=== PATIENT | female | born 1950 | race Caucasian/White ===

== ENCOUNTER 2016-06-04 19:18 | Inpatient (IN) | payer MEDICARE, MEDICAID ==
[2016-06-04] MEDS: ASPIRIN/DIPYRIDAMOLE 25-200 MG 1 CAP.SR CPMP.12HR PO SCH ×2 (01:06→22:00)
[2016-06-04] MEDS ORDERED: NORMAL SALINE 1000 ML 1,000 ML IV ONE ×3 (19:27→22:01)
--- NOTE | 2016-06-04 20:04 | ER Document Report ---
ED General - General Chief Complaint: Altered Mental Status Stated Complaint: ALTERED MENTAL STATUS Cannot obtain history due to: Unstable vital signs, Altered mental status Notes: Patient is a 65-year-old female with past history of hypertension, hyperlipidemia, CHF, peripheral vascular disease who presents by EMS after family found her minimally responsive in her bed. Had a breakdown her door to get inside. She was last seen 3 days ago. She was noted to not be moving the left side of her body. Patient does not have a history of similar symptoms in the past. Family noted that she seemed very confused. History is otherwise limited as patient is unable to provide meaningful history. She is critically ill at time of arrival. TRAVEL OUTSIDE OF THE [place] IN LAST 30 DAYS: No - Related Data Allergies/Adverse Reactions: Penicillins Allergy (Verified 06/05/16 01:22) Past Medical History - General Information source: Patient, Relative - Social History Smoking Status: Never Smoker Frequency of alcohol use: None Drug Abuse: None Lives with: Alone Family History: Reviewed & Not Pertinent - Past Medical History Cardiac Medical History: Reports: Hx Hypercholesterolemia, Hx Hypertension Neurological Medical History: Denies: Hx Seizures Endocrine Medical History: Reports: Hx Diabetes Mellitus Type 2 Renal/ Medical History: Reports: Hx Kidney Stones, Hx Ovarian Cysts - when 14yr old Musculoskeltal Medical History: Reports Hx Arthritis - hips/knees/fingers Past Surgical History: Reports: Hx Appendectomy, Hx Hysterectomy, Hx Tubal Ligation. Denies: Hx Pacemaker - Immunizations Hx Diphtheria, Pertussis, Tetanus Vaccination: No Hx Pneumococcal Vaccination: 05/24/08 Review of Systems - Review of Systems -: Yes ROS unobtainable due to patient's medical condition Physical Exam - Vital signs Vitals: Temp Pulse Resp BP Pulse Ox 98.5 F 122 H 18 149/91 H 96 06/04/16 19:26 06/04/16 19:26 06/04/16 19:26 06/04/16 19:26 06/04/16 19:26 Interpretation: Tachycardic Notes: PHYSICAL EXAMINATION: GENERAL: Critically ill in appearance, frail, confused HEAD: Atraumatic, normocephalic. EYES: Pupils equal round and reactive to light, patient will not cross midline to the left, sclera anicteric, conjunctiva are normal. ENT: nares patent, oropharynx clear without exudates. Dry mucous membranes. NECK: Normal range of motion, supple without lymphadenopathy LUNGS: Breath sounds clear to auscultation bilaterally and equal. No wheezes rales or rhonchi. HEART: Regular tachycardia without murmurs ABDOMEN: Soft, nontender, normoactive bowel sounds. No guarding, no rebound. No masses appreciated. EXTREMITIES: Normal range of motion, no pitting or edema. No cyanosis. NEUROLOGICAL: Complete left-sided neglect. Patient's gaze will not cross midline to the left. She does have flexion to noxious stimuli in both the left upper and lower extremity. 5 out of 5 strength both distally and proximally in the right upper and lower extremity. Face symmetric. Patient has clear speech that her thought content is often inappropriate or unclear. Unable to understand ataxia testing requests. PSYCH: Alert and oriented to person, place, year but confused to the situation and also has inappropriate thought content SKIN: Warm, Dry, normal turgor, no rashes or lesions noted. Course - Re-evaluation Re-evalutation: 06/04/16 20:02 A generalized critically ill, tachycardic, altered, complete left-sided neglect. Is not crossed the midline to the left. I suspect based on history that she had a stroke at some point in the last 2 days has been unable to get out of her bed secondary to that CVA. Her initial vitals in clinical appearance is concerning for possible associated infection at this point secondary to either aspiration or an occult urinary tract infection. She does have mild hypoxemia without oxygen dependence. She is extremely dehydrated on exam. Will proceed with broad laboratories, 2 L of IV fluid, CT the head, chest x-ray, fully catheter placement, and frequent reassessment. Patient is critically of this time will require frequent reassessments. 06/04/16 21:[address] scan does show a large right-sided stroke in the MCA distribution. Patient remains tachycardic without hypotension. Chest x-ray without evidence of an aspiration pneumonitis or pneumonia. White count is very elevated at 31. I'm awaiting the results of CMP. Troponin in the indeterminate range. Lactate not significantly elevated. 06/04/16 21:21 Labs demonstrate mild acute kidney injury but otherwise grossly unremarkable. Awaiting urinalysis. She will require admission. Fluids continue to infuse this time. Cefepime has been ordered given tachycardia, altered mental status, prolonged period in the bed, and prominent leukocytosis. 06/04/16 23:21 Urinalysis likewise not infected. I suspect leukocytosis is secondary to a stress response in the setting of a large CVA. Patient's tachycardia is improving at this time after administration of fluids and is currently in the 110s. I discussed this case with Dr. Porras will admit the patient. The family has been updated extensively at the bedside at this time. - Vital Signs Vital signs: Temp Pulse Resp BP Pulse Ox 98.5 F 122 H 19 153/97 H 93 06/04/16 19:26 06/04/16 19:26 06/05/16 03:00 06/04/16 20:31 06/05/16 03:00 - Laboratory Result Diagrams: 06/04/16 23:33 06/05/16 00:07 Laboratory results interpreted by me: 06/04/16 06/04/16 06/04/16 20:15 20:15 20:15 WBC 31.3 H* RBC 5.47 H Hgb 16.5 H Hct 51.4 H Seg Neuts % (Manual) 82 H Lymphocytes % (Manual) 8 L Abs Neuts (Manual) 25.7 H Abs Monocytes (Manual) 3.1 H ABG Total CO2 VBG pH Sodium 148.4 H Anion Gap 22 H BUN 69 H Creatinine 1.68 H Est GFR ( Amer) 37 L Est GFR (Non-Af Amer) 30 L Glucose 373 H Lactic Acid 2.4 H Calcium 10.8 H Creatine Kinase 381 H Total Protein 8.7 H Urine Protein Urine Glucose (UA) Urine Ketones Urine Blood 06/04/16 06/04/16 06/04/16 20:15 21:30 23:25 WBC RBC Hgb Hct Seg Neuts % (Manual) Lymphocytes % (Manual) Abs Neuts (Manual) Abs Monocytes (Manual) ABG Total CO2 25.5 H VBG pH 7.44 H Sodium Anion Gap BUN Creatinine Est GFR ( Amer) Est GFR (Non-Af Amer) Glucose Lactic Acid Calcium Creatine Kinase Total Protein Urine Protein 100 H Urine Glucose (UA) >=500 H Urine Ketones TRACE H Urine Blood SMALL H - Diagnostic Test Radiology reviewed: Image reviewed, Reports reviewed Radiology results interpreted by me: 06/04/16 21:11 CT head: Ischemic stroke in the right MCA distribution - EKG Interpretation by Me Additional EKG results interpreted by me: 06/05/16 03:22 Sinus tachycardia. Rate 123. No ST elevations or depressions. QTC 487. Critical Care Note - Critical Care Note Total time excluding time spent on procedures (mins): 40 Comments: Critical care time spent obtaining history from patient or surrogate, discussions with consultants, development of treatment plan with patient or surrogate, evaluation of patient's response to treatment, examination of patient , ordering and performing treatments and interventions, ordering and review of laboratory studies, re-evaluation of patient's condition, ordering and review of radiographic studies and review of old charts Discharge - Discharge Clinical Impression: Tachycardia, Dehydration, Acute kidney injury CVA (cerebral vascular accident) Qualifiers: CVA mechanism: unspecified Qualified Code(s): I63.9 - Cerebral infarction, unspecified Altered mental status Qualifiers: Altered mental status type: unspecified Qualified Code(s): R41.82 - Altered mental status, unspecified Disposition: ADMITTED INPATIENT Admitting Provider: [facility] Admitted: [facility]
[2016-06-04 20:29] LABS: VENOUS BLOOD BASE EXCESS 2.3 mmol/L; VENOUS BLOOD HCO3 26.5 mmol/L (20-32); VENOUS BLOOD PCO2 39.5 mmHg (35-63); VENOUS BLOOD PH 7.44 (7.30-7.42)
[2016-06-04 20:31] LABS: HEMATOCRIT 51.4 % (36.0-47.0); HEMOGLOBIN 16.5 g/dL (12.0-15.5); HGB HCT DIFFERENCE -1.9; MEAN CORPUSCULAR HEMOGLOBIN 30.2 pg (27.0-33.4); MEAN CORPUSCULAR HGB CONC 32.1 g/dL (32.0-36.0); MEAN CORPUSCULAR VOLUME 94 fl (80-97); RED BLOOD COUNT 5.47 10^6/uL (3.72-5.28); RED CELL DISTRIBUTION WIDTH 13.1 % (11.5-14.0)
[2016-06-04 20:46] LABS: ALANINE AMINOTRANSFERASE 21 U/L (9-52); ALBUMIN 4.7 g/dL (3.5-5.0); ALKALINE PHOSPHATASE 99 U/L (38-126); ASPARTATE AMINO TRANSFERASE 29 U/L (14-36); BILIRUBIN,TOTAL 1.2 mg/dL (0.2-1.3); BLOOD UREA NITROGEN 69 mg/dL (7-20); CALCIUM 10.8 mg/dL (8.4-10.2); CHLORIDE 102 mmol/L (98-107); CREATINE KINASE 381 U/L (30-135); CREATININE RESULT 1.68 mg/dL (0.52-1.25); GLUCOSE 373 mg/dL (75-110); POTASSIUM 4.8 mmol/L (3.6-5.0); TOTAL PROTEIN 8.7 g/dL (6.3-8.2)
[2016-06-04 20:51] LABS: BASOPHILS % (MANUAL) 0 % (0-2); EOSINOPHILS % (MANUAL) 0 % (0-6); LYMPHOCYTES % (MANUAL) 8 % (13-45); TOTAL CELLS COUNTED 100
[2016-06-04 20:52] LABS: TOXIC GRANULATION SLIGHT; WHITE BLOOD COUNT 31.3 10^3/uL (4.0-10.5)
[2016-06-04] MEDS ORDERED: HALOPERIDOL LACTATE INJ 5 MG/1 ML VIAL ONE (20:59)
[2016-06-04 21:01] LABS: CREATINE KINASE MB 3.04 ng/mL (<4.55)
[2016-06-04] MEDS ORDERED: CEFEPIME 2 GM/D5W RTU 50 ML IV ONE (21:02)
[2016-06-04 21:06] LABS: TROPONIN I 0.052 ng/mL
[2016-06-04 21:08] LABS: CARBON DIOXIDE 24 mmol/L (22-30); SODIUM 148.4 mmol/L (137-145)
[2016-06-04 21:14] LABS: ANION GAP 22 (5-19)
[2016-06-04] MEDS ORDERED: ASPIRIN 300 MG SUPP, RECTAL PR ONE (21:32)
[2016-06-04 21:55] LABS: APPEARANCE,URINE SLIGHTLY-CLOUDY; BILIRUBIN,URINE NEGATIVE (NEGATIVE); GLUCOSE, URINE >=500 mg/dL (NEGATIVE); KETONES,URINE TRACE mg/dL (NEGATIVE); LEUKOCYTE ESTERASE,URINE NEGATIVE (NEGATIVE); NITRITE,URINE NEGATIVE (NEGATIVE); PROTEIN,URINE 100 mg/dL (NEGATIVE); URINE SPECIFIC GRAVITY 1.028; UROBILINOGEN,URINE NEGATIVE mg/dL (<2.0)
[2016-06-04] MEDS ORDERED: CEFEPIME HCL 2 GM in DEXTROSE 5%-WATER 50 ML IV ONE (22:00)
[2016-06-04] MEDS ORDERED: DEXTROSE 40% GEL 15 GM TUBE NG PRN ×2 (22:57)
[2016-06-04] MEDS ORDERED: GLUCAGON,HUMAN RECOMB 1 MG INJ IM PRN (22:57)
[2016-06-04] MEDS ORDERED: DEXTROSE 50%-WATER 25 GM/50 ML DISP.SYRIN IV PRN ×2 (22:57)
[2016-06-04] MEDS ORDERED: PHARMACY COMMUNICATION ORDER MC NR (23:00)
[2016-06-04 23:43] LABS: ARTERIAL BLOOD BASE EXCESS -0.7 mmol/L; ARTERIAL BLOOD O2 SATURATION 95.9 % (94-98)
[2016-06-05] MEDS ORDERED: AMPICILLIN SODIUM/SULBACTAM NA 3 GM in NORMAL SALINE 100 ML IV SCH ×2
[2016-06-05] MEDS ORDERED: ASPIRIN/DIPYRIDAMOLE 25-200 MG 1 CAP.SR CPMP.12HR PO ONE (00:05)
[2016-06-05 00:16] LABS: HEMATOCRIT 43.8 % (36.0-47.0); HGB HCT DIFFERENCE -2.4; MEAN CORPUSCULAR HEMOGLOBIN 30.2 pg (27.0-33.4); MEAN CORPUSCULAR HGB CONC 31.6 g/dL (32.0-36.0); MEAN CORPUSCULAR VOLUME 96 fl (80-97); RED BLOOD COUNT 4.58 10^6/uL (3.72-5.28); RED CELL DISTRIBUTION WIDTH 13.3 % (11.5-14.0)
[2016-06-05 00:21] LABS: PROTHROMBIN TIME 12.6 SEC (11.4-15.4)
[2016-06-05 00:22] LABS: PARTIAL THROMBOPLASTIN TIME 22.5 SEC (23.5-35.8)
[2016-06-05 00:30] LABS: CREATININE RESULT 1.31 mg/dL (0.52-1.25)
[2016-06-05 00:33] LABS: WHITE BLOOD COUNT 32.1 10^3/uL (4.0-10.5)
[2016-06-05 00:35] LABS: HEMOGLOBIN 13.8 g/dL (12.0-15.5)
[2016-06-05 02:54] LABS: CREATINE KINASE MB 2.4 ng/mL (<4.55); TROPONIN I 0.053 ng/mL
[2016-06-05] MEDS: NORMAL SALINE 1000 ML 1,000 ML IV PRN (04:22)
[2016-06-05] MEDS ORDERED: HALOPERIDOL LACTATE INJ 5 MG/1 ML VIAL ONE (05:07)
[2016-06-05] MEDS: INSULIN LISPRO 100 UNIT/ML 3 ML VIAL SUBCUT PRN (05:17)
[2016-06-05] MEDS: ENOXAPARIN SODIUM INJ 40 MG/0.4 ML DISP.SYRIN SUBCUT SCH (07:55)
[2016-06-05] MEDS ORDERED: LEVOFLOXACIN 750 MG/D5W RTU 750 MG/150 ML RTUPB IV ONE (11:00)
[2016-06-05 13:27] LABS: CREATINE KINASE MB 4.46 ng/mL (<4.55); TROPONIN I 0.037 ng/mL
[2016-06-05] MEDS ORDERED: MORPHINE SULFATE 10 MG/ML INJ ONE (14:13)
[2016-06-05 14:14] LABS: PATH REVIEW PATHOLOGIST REVIEWED
--- NOTE | 2016-06-05 15:07 | EKG REPORT ---
SEVERITY:- ABNORMAL ECG - SINUS TACHYCARDIA PROBABLE LVH WITH SECONDARY REPOL ABNRM BORDERLINE INFERIOR Q WAVES ST DEPRESSION, CONSIDER ISCHEMIA, ANT-LAT LDS BORDERLINE PROLONGED QT INTERVAL : Confirmed by: Earline Perdomo 05-Jun-2016 15:06:55
--- NOTE | 2016-06-05 15:07 | EKG REPORT ---
SEVERITY:- ABNORMAL ECG - SINUS TACHYCARDIA MULTIFORM VENTRICULAR PREMATURE COMPLEXES PROBABLE LVH WITH SECONDARY REPOL ABNRM : Confirmed by: Earline Perdomo 05-Jun-2016 15:06:43
[2016-06-05] MEDS: MORPHINE SULFATE 10 MG/ML INJ IV PRN ×2 (15:35→23:15)
[2016-06-05 18:41] LABS: CREATINE KINASE MB 6.5 ng/mL (<4.55); TROPONIN I 0.047 ng/mL
--- NOTE | 2016-06-05 19:37 | PDOC H&P ---
History of Present Illness Admission Date/PCP: 06/04/16 23:40 DAYO CHANDLER, History of Present Illness: MIGUEL ANGEL LAZCANO is a 65 year old female with history of diabetes mellitus type II , hypertension, chronic kidney disease stage III, she was transferred to the emergency room last night, the history was that patient's family was unable to get in contact with the patient for 3 days, patient's family decided to visit Patient's residence, they have to breakdown the the door to get inside the residence, patient was found on the floor confused and she was not moving the left side of her body, in the emergency room she was seen, CT head was done without contrast, it showed patchy parenchyma hypodensities in the right temporal lobe consistent with middle cerebral artery distribution infarction. Subsequent MRI brain was done and it showed a large acute right middle cerebral artery distribution infarction involving the right basal ganglia, external capsule , insular cortex extending into the right posterior temporal Cortex. There is hematologic signal along the surface of the right perisylvian cortex with mild mass effect. MRA of the brain showed I grade stenosis at the trifurcation of the right middle cerebral artery. When I saw patient, she is unresponsive. I saw family by the bedside, the son and the daughter, family wants patient to be DO NOT RESUSCITATE Past Medical History Cardiac Medical History: Reports: Hyperlipidema, Hypertension Endocrine Medical History: Reports: Diabetes Mellitus Type 2 Renal/ Medical History: Reports: Chronic Kidney Disease - Chronic kidney disease stage 3 Musculoskeltal Medical History: Reports: Arthritis - hips/knees/fingers Psychiatric Medical History: Reports: Depression Past Surgical History Past Surgical History: Reports: Appendectomy, Hysterectomy, Tubal Ligation Social History Lives with: Alone Smoking Status: Never Smoker Cigarettes Packs Per Day: 2 Frequency of Alcohol Use: None Hx Recreational Drug Use: No Hx Prescription Drug Abuse: No - Advance Directive Resuscitation Status: Full Code Family History Family History: Reviewed & Not Pertinent Parental Family History Reviewed: Yes Children Family History Reviewed: Yes Sibling(s) Family History Reviewed.: Yes Medication/Allergy Home Medications: Acetaminophen [Tylenol 325 mg Tablet] 325 mg PO Q4HP PRN 06/05/16 Aspirin [Ecotrin 81 mg EC Tablet] 81 mg PO DAILY 06/05/16 Atorvastatin Calcium [Lipitor 20 mg Tablet] 20 mg PO DAILY 06/05/16 Canagliflozin [Invokana] 100 mg PO DAILY 06/05/16 Losartan/Hydrochlorothiazide [Hyzaar 50-12.5 Tablet] 1 each PO DAILY 06/05/16 Tramadol HCl/Acetaminophen [Ultracet 37.5 mg/325 mg Tablet] 1 tab PO Q6 Allergies/Adverse Reactions: Penicillins Allergy (Mild, Verified 06/05/16 09:56) RASH Review of Systems ROS unobtainable: Due to mental status Physical Exam Vital Signs: Temp Pulse Resp BP Pulse Ox 97.6 F 108 H 18 161/78 H 97 06/05/16 15:34 06/05/16 16:00 06/05/16 16:00 06/05/16 16:00 06/05/16 16:00 Intake & Output 06/04/16 06/05/16 06/06/16 06:59 06:59 06:59 Intake Total 750 Output Total 600 Balance 150 Weight 59.3 kg General appearance: PRESENT: other - Patient is unresponsive Eye exam: PRESENT: PERRLA Respiratory exam: PRESENT: clear to auscultation maryanne Cardiovascular exam: PRESENT: +S1, +S2 GI/Abdominal exam: PRESENT: soft Neurological exam: PRESENT: other - Flaccid left-sided hemiplegia Results Laboratory Results: 06/05/16 00:07 06/05/16 00:07 Creatinine 1.31 H Est GFR ( Amer) 49 L Est GFR (Non-Af Amer) 40 L 06/05/16 06/05/16 06/05/16 02:21 02:21 12:12 Creatine Kinase 359 H 1034 H CK-MB (CK-2) 2.40 Troponin I 0.053 06/05/16 06/05/16 06/05/16 12:12 17:55 17:55 Creatine Kinase 1592 H CK-MB (CK-2) 4.46 6.50 H Troponin I 0.037 0.047 Impressions: Chest X-Ray 06/04/16 19:27 IMPRESSION: NO ACUTE RADIOGRAPHIC FINDING IN THE CHEST. Head CT 06/04/16 20:02 IMPRESSION: Patchy parenchymal hypodensities in the right temporal lobe consistent with a subacute MCA distribution infarct, new since the previous MRI. No intracranial hemorrhage or midline shift. Brain MRI with MRA 06/05/16 00:00 IMPRESSION: Large right MCA distribution infarct with hemorrhagic staining over the superficial cortical surface. Mild local mass effect with sulcal and sylvian fissure effacement and flattening of the right lateral ventricle. Abnormal distal right middle cerebral artery at the trifurcation, with a short segment of flow gap. More distally, there is flow identified in the right middle cerebral artery branches, although significantly attenuated in the posterior right middle cerebral artery branches Carotid Doppler Study 06/05/16 00:00 IMPRESSION: NO HEMODYNAMICALLY SIGNIFICANT STENOSIS. Head MRI 06/05/16 00:00 IMPRESSION: Large right MCA distribution infarct with hemorrhagic staining over the superficial cortical surface. Mild local mass effect with sulcal and sylvian fissure effacement and flattening of the right lateral ventricle. Abnormal distal right middle cerebral artery at the trifurcation, with a short segment of flow gap. More distally, there is flow identified in the right middle cerebral artery branches, although significantly attenuated in the posterior right middle cerebral artery branches Renal Ultrasound 06/05/16 00:00 IMPRESSION: No hydronephrosis. Assessment & Plan - Diagnosis (1) Right middle cerebral artery stroke Is this a current diagnosis for this admission?: YesPlan: Management per stroke protocol instituted, she has a massive stroke, patient will be monitored in intensive care unit, the MRI suggest mild hemorrhagic transformation, prognosis is guarded to poor in this patient (2) Flaccid hemiplegia affecting left nondominant side Is this a current diagnosis for this admission?: Yes (3) Diabetes mellitus, type II Qualifiers: Diabetes mellitus complication status: with neurologic complications Diabetes mellitus complication detail: with other neurological complication Diabetes mellitus prison insulin use: without prison use Qualified Code(s): E11.49 - Type 2 diabetes mellitus with other diabetic neurological complication Is this a current diagnosis for this admission?: Yes (4) Acute kidney injury superimposed on chronic kidney disease Is this a current diagnosis for this admission?: YesPlan: The kidney ultrasound was done there is no hydronephrosis to suggest post renal , acute kidney injury (5) Acute worsening of stage 3 chronic kidney disease Is this a current diagnosis for this admission?: Yes
--- NOTE | 2016-06-05 20:01 | XCELERA REPORT ---
[address] [address] Transthoracic Echocardiogram Report Name: MIGUEL ANGEL LAZCANO Age: 65 yrs Gender: Female : 1950 Patient Status: Inpatient Patient Location: \S\20\S\A Study Date: 06/05/2016 10:17 AM Height: 64 in Weight: 123 lb BSA: 1.6 m2 Procedure: A complete two-dimensional transthoracic echocardiogram was performed (2D, M-mode, spectral and color flow Doppler). The study was technically difficult with many images being suboptimal in quality. Reason For Study: cva Ordering Physician: DAYO CHANDLER Performed By: Chelle Thomas Interpretation Summary The left ventricular ejection fraction is normal. There is borderline concentric left ventricular hypertrophy. The left ventricle is grossly normal size. Doppler measurements suggest pseudonormalized left ventricular relaxation, which is associated with grade II/IV or mild to moderate diastolic dysfunction Wall motion cannot be accurately commented on, but no definite regional wall motion abnormalities noted. The right ventricular systolic function is normal. The left atrial size is normal. The right atrium is normal. There is no mitral valve stenosis. There is a trace amount of mitral regurgitation No aortic regurgitation is present. There is no aortic valve stenosis There is no tricuspid stenosis. No tricuspid regurgitation. The aortic root is not well visualized. The inferior vena cava was not well visualized There is no pericardial effusion. Consider MANINDER if clinically indicated. May consider mobile cardiac telemetry monitoring (MCT) for ruling out transient AFIB. MMode/2D Measurements \T\ Calculations RVDd: 2.5 cm LVIDd: 3.8 cm FS: 34.7 % Ao root diam: 3.5 cm IVSd: 0.95 cm LVIDs: 2.5 cm EDV(Teich): 62.0 ml LVPWd: 1.0 cm ESV(Teich): 22.0 ml Ao root area: 9.9 cm2 EF(Teich): 64.6 % LA dimension: 3.1 cm LVOT diam: 2.0 cm LVOT area: 3.1 cm2 Doppler Measurements \T\ Calculations MV E max scottie: MV P1/2t max scottie: Ao V2 max: LV V1 max P.7 cm/sec 63.2 cm/sec 127.3 cm/sec 4.5 mmHg MV A max scottie: MV P1/2t: 44.0 msec Ao max PG: LV V1 max: 110.6 cm/sec MVA(P1/2t): 5.0 cm2 6.5 mmHg 106.6 cm/sec MV E/A: 0.56 MV dec slope: REDDY(V,D): 2.6 cm2 420.5 cm/sec2 MV dec time: 0.17 sec PA V2 max: 108.6 cm/sec PA max P.7 mmHg Left Ventricle The left ventricle is grossly normal size. There is borderline concentric left ventricular hypertrophy. The left ventricular ejection fraction is normal. Doppler measurements suggest pseudonormalized left ventricular relaxation, which is associated with grade II/IV or mild to moderate diastolic dysfunction. Wall motion cannot be accurately commented on, but no definite regional wall motion abnormalities noted. Right Ventricle The right ventricle is grossly normal size. There is normal right ventricular wall thickness. The right ventricular systolic function is normal. Atria The right atrium is normal. The left atrial size is normal. Interarterial septum not well visualized and not well dopplered. Cannot comment on ASD/PFO presence. Mitral Valve The mitral valve is grossly normal. There is no mitral valve stenosis. There is a trace amount of mitral regurgitation. Aortic Valve The aortic valve is not well visualized secondary to technical limitations. There is no aortic valve stenosis. No aortic regurgitation is present. Tricuspid Valve The tricuspid valve is not well visualized, but is grossly normal. There is no tricuspid stenosis. No tricuspid regurgitation. Pulmonic Valve The pulmonic valve is not well visualized. Great Vessels The aortic root is not well visualized. The inferior vena cava was not well visualized. Effusions There is no pericardial effusion. Incidental Findings No definite cardiac source of CVA/TIA noted on this particular trans- thoracic study. Consider MANINDER if clinically indicated. May consider mobile cardiac telemetry monitoring (MCT) for ruling out transient AFIB. : DAYO CHANDLER > Earline Perdomo
[2016-06-06] MEDS: MORPHINE SULFATE 10 MG/ML INJ IV PRN ×4 (03:44→18:28)
[2016-06-06] MEDS: NORMAL SALINE 1000 ML 1,000 ML IV PRN ×2 (09:19→21:16)
[2016-06-06] MEDS: LEVOFLOXACIN 750 MG/D5W RTU 750 MG/150 ML RTUPB IV SCH (09:19)
[2016-06-06] MEDS: ASPIRIN/DIPYRIDAMOLE 25-200 MG 1 CAP.SR CPMP.12HR PO SCH ×2 (11:40→21:15)
[2016-06-06] MEDS: ENOXAPARIN SODIUM INJ 40 MG/0.4 ML DISP.SYRIN SUBCUT SCH (11:40)
[2016-06-06] MEDS: INSULIN LISPRO 100 UNIT/ML 3 ML VIAL SUBCUT PRN (11:50)
--- NOTE | 2016-06-06 18:07 | PDOC PROGRESS REPORT ---
Subjective Progress Note for:: 06/06/16 Subjective:: Daughters and son at bedside. Patient is lucid to person and names. Denied any chest pain or difficulty with breathing. Nursing staff reported intermittent inappropriate responses earlier today. Remain NPO for food. No reported fever or chills. Physical Exam Vital Signs: Temp Pulse Resp BP Pulse Ox 98.0 F 87 18 188/81 H 95 06/06/16 16:18 06/06/16 16:18 06/06/16 16:18 06/06/16 16:18 06/06/16 16:18 Intake & Output 06/05/16 06/06/16 06/07/16 06:59 06:59 06:59 Intake Total 1950 0 Output Total 1200 500 Balance 750 -500 Weight 60.9 kg General appearance: PRESENT: no acute distress, well-developed, well-nourished Head exam: PRESENT: atraumatic, normocephalic Eye exam: PRESENT: conjunctiva pink, EOMI, PERRLA. ABSENT: scleral icterus Ear exam: PRESENT: normal external ear exam Mouth exam: PRESENT: moist, tongue midline Teeth exam: ABSENT: dental caries, dental tenderness, edentulous, poor dentation , other Throat exam: ABSENT: post pharyngeal erythema, tonsillar erythema, tonsillar exudate, tonsillogmegaly, other Neck exam: PRESENT: full ROM. ABSENT: carotid bruit, JVD, lymphadenopathy, thyromegaly Respiratory exam: ABSENT: accessory muscle use, chest wall tenderness, clear to auscultation maryanne, crackles, decreased breath sounds, prolonged expiratory phas, rales, retraction, rhonchi, stridor, symmetrical, tachypnea, unlabored, wheezes , other Cardiovascular exam: PRESENT: RRR. ABSENT: diastolic murmur, rubs, systolic murmur Pulses: PRESENT: normal dorsalis pedis pul, +2 pedal pulses bilateral Vascular exam: PRESENT: normal capillary refill GI/Abdominal exam: PRESENT: normal bowel sounds, soft. ABSENT: distended, guarding, mass, organolmegaly, rebound, tenderness Extremities exam: PRESENT: full ROM Musculoskeletal exam: PRESENT: full ROM, normal inspection Neurological exam: PRESENT: alert, awake, oriented to person, other - there is dense left hemiplegia Psychiatric exam: PRESENT: appropriate affect, normal mood. ABSENT: homicidal ideation, suicidal ideation Skin exam: PRESENT: dry, intact, warm. ABSENT: cyanosis, rash Results Laboratory Results: 06/05/16 00:07 06/05/16 06/05/16 06/05/16 02:21 02:21 12:12 Creatine Kinase 359 H 1034 H CK-MB (CK-2) 2.40 Troponin I 0.053 06/05/16 06/05/16 06/05/16 12:12 17:55 17:55 Creatine Kinase 1592 H CK-MB (CK-2) 4.46 6.50 H Troponin I 0.037 0.047 Impressions: Chest X-Ray 06/04/16 19:27 IMPRESSION: NO ACUTE RADIOGRAPHIC FINDING IN THE CHEST. Head CT 06/04/16 20:02 IMPRESSION: Patchy parenchymal hypodensities in the right temporal lobe consistent with a subacute MCA distribution infarct, new since the previous MRI. No intracranial hemorrhage or midline shift. Brain MRI with MRA 06/05/16 00:00 IMPRESSION: Large right MCA distribution infarct with hemorrhagic staining over the superficial cortical surface. Mild local mass effect with sulcal and sylvian fissure effacement and flattening of the right lateral ventricle. Abnormal distal right middle cerebral artery at the trifurcation, with a short segment of flow gap. More distally, there is flow identified in the right middle cerebral artery branches, although significantly attenuated in the posterior right middle cerebral artery branches Carotid Doppler Study 06/05/16 00:00 IMPRESSION: NO HEMODYNAMICALLY SIGNIFICANT STENOSIS. Head MRI 06/05/16 00:00 IMPRESSION: Large right MCA distribution infarct with hemorrhagic staining over the superficial cortical surface. Mild local mass effect with sulcal and sylvian fissure effacement and flattening of the right lateral ventricle. Abnormal distal right middle cerebral artery at the trifurcation, with a short segment of flow gap. More distally, there is flow identified in the right middle cerebral artery branches, although significantly attenuated in the posterior right middle cerebral artery branches Renal Ultrasound 06/05/16 00:00 IMPRESSION: No hydronephrosis. Assessment & Plan - Diagnosis (1) Traumatic rhabdomyolysis Qualifiers: Encounter type: subsequent encounter Qualified Code(s): T79.6XXD - Traumatic ischemia of muscle, subsequent encounter Is this a current diagnosis for this admission?: YesPlan: Continue IV hydration therapy. Total CK is currently on upward trend. (2) HTN (hypertension) Qualifiers: Hypertension type: essential hypertension Qualified Code(s): I10 - Essential (primary) hypertension Is this a current diagnosis for this admission?: YesPlan: Restart on Losartan 50 mg po daily. Monitor renal indices. (3) HLD (hyperlipidemia) Qualifiers: Hyperlipidemia type: pure hypercholesterolemia Qualified Code(s): E78.00 - Pure hypercholesterolemia, unspecified; E78.0 - Pure hypercholesterolemia Is this a current diagnosis for this admission?: YesPlan: Obtain fasting Lipid panel in AM. Hold statin therapy in view of acute rhabdomyolysis (4) Acute worsening of stage 3 chronic kidney disease Is this a current diagnosis for this admission?: YesPlan: There is some degree of improvement in renal indices. We will repeat her CMP in am. (5) CVA (cerebral vascular accident) Qualifiers: CVA mechanism: unspecified Qualified Code(s): I63.9 - Cerebral infarction, unspecified Is this a current diagnosis for this admission?: YesPlan: Continue supportive care. She may need repeat CT scan evaluation in next 72 hours if clinical status continue to improve. (6) Diabetes mellitus, type II Qualifiers: Diabetes mellitus complication status: with neurologic complications Diabetes mellitus complication detail: with other neurological complication Diabetes mellitus senior care insulin use: without intermodal dispatcher use Qualified Code(s): E11.49 - Type 2 diabetes mellitus with other diabetic neurological complication Is this a current diagnosis for this admission?: Yes (7) Flaccid hemiplegia affecting left nondominant side Is this a current diagnosis for this admission?: YesPlan: Continue current supportive care. Request physical therapy, occupational therapy and speech pathologist input in rehabilitative care plan. - Time Time Spent with patient: 35 or more minutes Medications reviewed and adjusted accordingly: Yes Anticipated discharge: Acute Rehab Within: Other - Inpatient Certification Medical Necessity: Need For IV Fluids, Need for Neurological Checks, Need for IV Antibiotics, Risk of Complication if Not Cared For in Hospital Post Hospital Care: D/C Trommel Tender Documentation - Plan Summary Plan Summary: See covering attending physician orders. I had extensive discussion with family and patient at bedside during my visit regarding her guided prognosis. She will remain a DNR. More than 50% of my consultation time was spent in care plan counseling and answering raised questions.
[2016-06-07 06:36] LABS: MICROALBUMIN URINE 49.9 ug/mL (Not Estab.)
[2016-06-07] MEDS: NORMAL SALINE 1000 ML 1,000 ML IV PRN ×2 (07:19→18:12)
[2016-06-07] MEDS: ENOXAPARIN SODIUM INJ 40 MG/0.4 ML DISP.SYRIN SUBCUT SCH (09:33)
[2016-06-07] MEDS: LEVOFLOXACIN 750 MG/D5W RTU 750 MG/150 ML RTUPB IV SCH (09:34)
[2016-06-07] MEDS: ASPIRIN/DIPYRIDAMOLE 25-200 MG 1 CAP.SR CPMP.12HR PO SCH ×2 (09:35→23:17)
[2016-06-07] MEDS: MORPHINE SULFATE 10 MG/ML INJ IV PRN ×2 (10:22→16:09)
[2016-06-07] MEDS: INSULIN LISPRO 100 UNIT/ML 3 ML VIAL SUBCUT PRN (11:08)
--- NOTE | 2016-06-07 15:50 | PDOC PROGRESS REPORT ---
Subjective Progress Note for:: 06/07/16 Subjective:: Patient continue to demonstrate fairly satisfactory clarity in her responses with some episodes of disorientation to place as per nursing staff report. She denied any chest pain or difficulty with breathing. Remain N.P.O for food. No reported fever or chills. Family members are at bedside. Physical Exam Vital Signs: Temp Pulse Resp BP Pulse Ox 98.2 F 95 20 185/66 H 94 06/07/16 11:05 06/07/16 14:00 06/07/16 12:00 06/07/16 12:00 06/07/16 12:00 Intake & Output 06/06/16 06/07/16 06/08/16 06:59 06:59 06:59 Intake Total 1950 2649 0 Output Total 1200 1850 500 Balance 750 799 -500 Weight 60.9 kg 67.449 kg General appearance: PRESENT: no acute distress, well-developed, well-nourished Head exam: PRESENT: atraumatic, normocephalic Eye exam: PRESENT: conjunctiva pink, EOMI, scleral icterus Respiratory exam: ABSENT: accessory muscle use, chest wall tenderness, clear to auscultation maryanne, crackles, decreased breath sounds, prolonged expiratory phas, rales, retraction, rhonchi, stridor, symmetrical, tachypnea, unlabored, wheezes , other Cardiovascular exam: PRESENT: RRR. ABSENT: diastolic murmur, rubs, systolic murmur GI/Abdominal exam: PRESENT: normal bowel sounds, soft. ABSENT: distended, guarding, mass, organolmegaly, rebound, tenderness Neurological exam: PRESENT: alert, awake, other - there is dense left hemiplegia with right gaze preference Psychiatric exam: PRESENT: appropriate affect, normal mood. ABSENT: homicidal ideation, suicidal ideation Skin exam: PRESENT: dry, intact, warm. ABSENT: cyanosis, rash Results Laboratory Results: 06/05/16 00:07 06/05/16 06/05/16 06/05/16 02:21 02:21 12:12 Creatine Kinase 359 H 1034 H CK-MB (CK-2) 2.40 Troponin I 0.053 06/05/16 06/05/16 06/05/16 12:12 17:55 17:55 Creatine Kinase 1592 H CK-MB (CK-2) 4.46 6.50 H Troponin I 0.037 0.047 Impressions: Chest X-Ray 06/04/16 19:27 IMPRESSION: NO ACUTE RADIOGRAPHIC FINDING IN THE CHEST. Head CT 06/04/16 20:02 IMPRESSION: Patchy parenchymal hypodensities in the right temporal lobe consistent with a subacute MCA distribution infarct, new since the previous MRI. No intracranial hemorrhage or midline shift. Brain MRI with MRA 06/05/16 00:00 IMPRESSION: Large right MCA distribution infarct with hemorrhagic staining over the superficial cortical surface. Mild local mass effect with sulcal and sylvian fissure effacement and flattening of the right lateral ventricle. Abnormal distal right middle cerebral artery at the trifurcation, with a short segment of flow gap. More distally, there is flow identified in the right middle cerebral artery branches, although significantly attenuated in the posterior right middle cerebral artery branches Carotid Doppler Study 06/05/16 00:00 IMPRESSION: NO HEMODYNAMICALLY SIGNIFICANT STENOSIS. Head MRI 06/05/16 00:00 IMPRESSION: Large right MCA distribution infarct with hemorrhagic staining over the superficial cortical surface. Mild local mass effect with sulcal and sylvian fissure effacement and flattening of the right lateral ventricle. Abnormal distal right middle cerebral artery at the trifurcation, with a short segment of flow gap. More distally, there is flow identified in the right middle cerebral artery branches, although significantly attenuated in the posterior right middle cerebral artery branches Renal Ultrasound 06/05/16 00:00 IMPRESSION: No hydronephrosis. Assessment & Plan - Diagnosis (1) Traumatic rhabdomyolysis Qualifiers: Encounter type: subsequent encounter Qualified Code(s): T79.6XXD - Traumatic ischemia of muscle, subsequent encounter Is this a current diagnosis for this admission?: YesPlan: Continue IV normal saline infusion. Obtain serum total CK in am. (2) HTN (hypertension) Qualifiers: Hypertension type: essential hypertension Qualified Code(s): I10 - Essential (primary) hypertension Is this a current diagnosis for this admission?: YesPlan: Discontinue attempt at oral Losartan therapy. Start on IV Vasotec 0.625 mg [id number] for blood pressure management. (3) HLD (hyperlipidemia) Qualifiers: Hyperlipidemia type: pure hypercholesterolemia Qualified Code(s): E78.00 - Pure hypercholesterolemia, unspecified; E78.0 - Pure hypercholesterolemia Is this a current diagnosis for this admission?: Yes (4) Acute worsening of stage 3 chronic kidney disease Is this a current diagnosis for this admission?: Yes (5) CVA (cerebral vascular accident) Qualifiers: CVA mechanism: unspecified Qualified Code(s): I63.9 - Cerebral infarction, unspecified Is this a current diagnosis for this admission?: YesPlan: Continue supportive care. She may need repeat CT scan evaluation in next 72 hours if clinical status continue to improve. Consider acute inpatient rehabilitation. (6) Diabetes mellitus, type II Qualifiers: Diabetes mellitus complication status: with neurologic complications Diabetes mellitus complication detail: with other neurological complication Diabetes mellitus alf insulin use: without ferry terminal agent use Qualified Code(s): E11.49 - Type 2 diabetes mellitus with other diabetic neurological complication Is this a current diagnosis for this admission?: Yes (7) Flaccid hemiplegia affecting left nondominant side Is this a current diagnosis for this admission?: YesPlan: Continue current supportive care. Request physical therapy, occupational therapy and speech pathologist input in rehabilitative care plan. - Time Time Spent with patient: 25-34 minutes Medications reviewed and adjusted accordingly: Yes Anticipated discharge: Acute Rehab Within: Other - Inpatient Certification Medical Necessity: Need Close Monitoring Due to Risk of Patient Decompensation, Need For IV Fluids, Need for Neurological Checks, Risk of Complication if Not Cared For in Hospital Post Hospital Care: D/C Steel Inspector Documentation - Plan Summary Plan Summary: See covering physician orders.
[2016-06-07] MEDS ORDERED: ENALAPRILAT DIHYDRATE INJ/PF 1.25 MG/1 ML SDV IV ONE (16:30)
[2016-06-07] MEDS: ENALAPRILAT DIHYDRATE INJ/PF 1.25 MG/1 ML SDV IV SCH (20:40)
[2016-06-08] MEDS: NORMAL SALINE 1000 ML 1,000 ML IV PRN ×2 (03:19→15:29)
[2016-06-08] MEDS: ENALAPRILAT DIHYDRATE INJ/PF 1.25 MG/1 ML SDV IV SCH ×3 (03:19→14:50)
[2016-06-08] MEDS: MORPHINE SULFATE 10 MG/ML INJ IV PRN ×3 (06:27→19:32)
[2016-06-08 06:40] LABS: ABSOLUTE BASOPHILS # (AUTO) 0.1 10^3/uL (0.0-0.2); ABSOLUTE EOSINOPHILS # (AUTO) 0.1 10^3/uL (0.0-0.6); ABSOLUTE LYMPHOCYTES (AUTO) 2.1 10^3/uL (0.5-4.7); ABSOLUTE NEUT (AUTO) 11.3 10^3/uL (1.7-8.2); BASOPHILS % (AUTO) 0.7 % (0-2); EOSINOPHILS % (AUTO) 0.5 % (0-6); HEMATOCRIT 34.3 % (36.0-47.0); HEMOGLOBIN 11.2 g/dL (12.0-15.5); HGB HCT DIFFERENCE -0.7; LYMPHOCYTES % (AUTO) 13.3 % (13-45); MEAN CORPUSCULAR HEMOGLOBIN 31.1 pg (27.0-33.4); MEAN CORPUSCULAR HGB CONC 32.8 g/dL (32.0-36.0); MEAN CORPUSCULAR VOLUME 95 fl (80-97); MONOCYTES % (AUTO) 12.7 % (3-13); RED BLOOD COUNT 3.61 10^6/uL (3.72-5.28); RED CELL DISTRIBUTION WIDTH 12.5 % (11.5-14.0); SEGMENTED NEUTROPHILS % (AUTO) 72.8 % (42-78); WHITE BLOOD COUNT 15.5 10^3/uL (4.0-10.5)
[2016-06-08 06:52] LABS: ALANINE AMINOTRANSFERASE 26 U/L (9-52); ALBUMIN 2.4 g/dL (3.5-5.0); ALKALINE PHOSPHATASE 54 U/L (38-126); ANION GAP 10 (5-19); ASPARTATE AMINO TRANSFERASE 29 U/L (14-36); BILIRUBIN,TOTAL 0.5 mg/dL (0.2-1.3); BLOOD UREA NITROGEN 25 mg/dL (7-20); CARBON DIOXIDE 21 mmol/L (22-30); CHLORIDE 115 mmol/L (98-107); CREATININE RESULT 0.85 mg/dL (0.52-1.25); GLUCOSE 99 mg/dL (75-110); POTASSIUM 3.5 mmol/L (3.6-5.0); SODIUM 146.2 mmol/L (137-145); TOTAL PROTEIN 4.9 g/dL (6.3-8.2)
[2016-06-08] MEDS: ENOXAPARIN SODIUM INJ 40 MG/0.4 ML DISP.SYRIN SUBCUT SCH (09:13)
[2016-06-08] MEDS: LEVOFLOXACIN 750 MG/D5W RTU 750 MG/150 ML RTUPB IV SCH (09:14)
[2016-06-08] MEDS: ASPIRIN/DIPYRIDAMOLE 25-200 MG 1 CAP.SR CPMP.12HR PO SCH ×2 (09:28→21:34)
--- NOTE | 2016-06-08 16:43 | PDOC PROGRESS REPORT ---
Subjective Progress Note for:: 06/08/16 Subjective:: Patient was admitted last week when she presented with a large CVA and left side flaccid paralysis, she is oriented to time, place and person. The family was in the patient's room, advised them of the plan of care, discharge planning will arrange for inpatient rehabilitation. Physical Exam Vital Signs: Temp Pulse Resp BP Pulse Ox 97.0 F 87 19 168/63 H 94 06/08/16 15:43 06/08/16 15:43 06/08/16 15:43 06/08/16 15:43 06/08/16 15:43 Intake & Output 06/07/16 06/08/16 06/09/16 06:59 06:59 06:59 Intake Total 2649 2364 Output Total 1850 1375 400 Balance 799 989 -400 Weight 67.449 kg 68 kg General appearance: PRESENT: no acute distress Eye exam: PRESENT: PERRLA Respiratory exam: PRESENT: clear to auscultation maryanne Cardiovascular exam: PRESENT: +S1, +S2 Neurological exam: PRESENT: alert, other - There is left sided paralysis Results Laboratory Results: 06/08/16 06:08 06/08/16 06:08 06/08/16 06/08/16 06:08 06:08 WBC 15.5 H RBC 3.61 L Hgb 11.2 L Hct 34.3 L MCV 95 MCH 31.1 MCHC 32.8 RDW 12.5 Plt Count 194 Seg Neutrophils % 72.8 Lymphocytes % 13.3 Monocytes % 12.7 Eosinophils % 0.5 Basophils % 0.7 Absolute Neutrophils 11.3 H Absolute Lymphocytes 2.1 Absolute Monocytes 2.0 H Absolute Eosinophils 0.1 Absolute Basophils 0.1 Sodium 146.2 H Potassium 3.5 L Chloride 115 H Carbon Dioxide 21 L Anion Gap 10 BUN 25 H Creatinine 0.85 Est GFR ( Amer) > 60 Est GFR (Non-Af Amer) > 60 Glucose 99 Calcium 8.0 L Total Bilirubin 0.5 AST 29 ALT 26 Alkaline Phosphatase 54 Total Protein 4.9 L Albumin 2.4 L 06/05/16 06/05/16 06/05/16 02:21 02:21 12:12 Creatine Kinase 359 H 1034 H CK-MB (CK-2) 2.40 Troponin I 0.053 06/05/16 06/05/16 06/05/16 12:12 17:55 17:55 Creatine Kinase 1592 H CK-MB (CK-2) 4.46 6.50 H Troponin I 0.037 0.047 Impressions: Chest X-Ray 06/04/16 19:27 IMPRESSION: NO ACUTE RADIOGRAPHIC FINDING IN THE CHEST. Head CT 06/04/16 20:02 IMPRESSION: Patchy parenchymal hypodensities in the right temporal lobe consistent with a subacute MCA distribution infarct, new since the previous MRI. No intracranial hemorrhage or midline shift. Brain MRI with MRA 06/05/16 00:00 IMPRESSION: Large right MCA distribution infarct with hemorrhagic staining over the superficial cortical surface. Mild local mass effect with sulcal and sylvian fissure effacement and flattening of the right lateral ventricle. Abnormal distal right middle cerebral artery at the trifurcation, with a short segment of flow gap. More distally, there is flow identified in the right middle cerebral artery branches, although significantly attenuated in the posterior right middle cerebral artery branches Carotid Doppler Study 06/05/16 00:00 IMPRESSION: NO HEMODYNAMICALLY SIGNIFICANT STENOSIS. Head MRI 06/05/16 00:00 IMPRESSION: Large right MCA distribution infarct with hemorrhagic staining over the superficial cortical surface. Mild local mass effect with sulcal and sylvian fissure effacement and flattening of the right lateral ventricle. Abnormal distal right middle cerebral artery at the trifurcation, with a short segment of flow gap. More distally, there is flow identified in the right middle cerebral artery branches, although significantly attenuated in the posterior right middle cerebral artery branches Renal Ultrasound 06/05/16 00:00 IMPRESSION: No hydronephrosis. Assessment & Plan - Diagnosis (1) Right middle cerebral artery stroke Is this a current diagnosis for this admission?: YesPlan: She has a large right-sided CVA in the middle cerebral artery territory with flaccid paralysis of the left of the body, denies plan of care is to get into rehabilitation consultation will be requested from PT. She be started on high- dose atorvastatin 80 mg by mouth daily, she will continue Aggrenox (2) Flaccid hemiplegia affecting left nondominant side Is this a current diagnosis for this admission?: Yes (3) Diabetes mellitus, type II Qualifiers: Diabetes mellitus complication status: with neurologic complications Diabetes mellitus complication detail: with other neurological complication Diabetes mellitus terminal system operator insulin use: without terminal system operator use Qualified Code(s): E11.49 - Type 2 diabetes mellitus with other diabetic neurological complication Is this a current diagnosis for this admission?: Yes (4) Acute kidney injury superimposed on chronic kidney disease Is this a current diagnosis for this admission?: YesPlan: Acute kidney injury has resolved. There is most likely prerenal (5) Leukocytosis Qualifiers: Leukocytosis type: leukemoid reaction Qualified Code(s): D72.823 - Leukemoid reaction Is this a current diagnosis for this admission?: Yes (6) Essential (primary) hypertension Is this a current diagnosis for this admission?: YesPlan: She will be started on losartan and when necessary labetalol
[2016-06-08] MEDS ORDERED: LOSARTAN POTASSIUM 50 MG TABLET PO ONE (16:45)
[2016-06-08] MEDS: ATORVASTATIN CALCIUM 80 MG TABLET PO SCH (21:50)
[2016-06-09] MEDS: LABETALOL HCL INJ 20 MG/4 ML DISP.SYRIN IV PRN ×2 (00:29→21:22)
[2016-06-09] MEDS: MORPHINE SULFATE 10 MG/ML INJ IV PRN ×3 (00:53→19:54)
[2016-06-09] MEDS: METFORMIN HCL 500 MG TABLET PO SCH ×2 (08:00→16:15)
[2016-06-09] MEDS: ASPIRIN/DIPYRIDAMOLE 25-200 MG 1 CAP.SR CPMP.12HR PO SCH ×2 (11:00→22:54)
[2016-06-09] MEDS: LOSARTAN POTASSIUM 50 MG TABLET PO SCH (11:00)
[2016-06-09] MEDS: ENOXAPARIN SODIUM INJ 40 MG/0.4 ML DISP.SYRIN SUBCUT SCH (11:00)
[2016-06-09] MEDS: LEVOFLOXACIN 750 MG/D5W RTU 750 MG/150 ML RTUPB IV SCH (12:05)
[2016-06-09] MEDS ORDERED: DIPHENHYDRAMINE HCL 25 MG/10 ML UDC PO PRN (20:40)
[2016-06-09] MEDS: ATORVASTATIN CALCIUM 80 MG TABLET PO SCH (22:44)
[2016-06-09] MEDS: ACETAMINOPHEN 325 MG TABLET PO PRN (22:44)
[2016-06-10] MEDS: MORPHINE SULFATE 10 MG/ML INJ IV PRN ×2 (01:14→06:32)
[2016-06-10] MEDS: LABETALOL HCL INJ 20 MG/4 ML DISP.SYRIN IV PRN (01:14)
[2016-06-10] MEDS: METFORMIN HCL 500 MG TABLET PO SCH ×2 (09:38→16:46)
[2016-06-10] MEDS: OXYCODONE-ACETAMINOPHEN 5-325 MG TABLET PO PRN ×3 (09:39→22:44)
[2016-06-10] MEDS: ASPIRIN/DIPYRIDAMOLE 25-200 MG 1 CAP.SR CPMP.12HR PO SCH ×2 (09:40→23:18)
[2016-06-10] MEDS: LOSARTAN POTASSIUM 50 MG TABLET PO SCH (09:41)
[2016-06-10] MEDS: LEVOFLOXACIN 750 MG/D5W RTU 750 MG/150 ML RTUPB IV SCH (09:41)
[2016-06-10] MEDS: ENOXAPARIN SODIUM INJ 40 MG/0.4 ML DISP.SYRIN SUBCUT SCH (09:42)
--- NOTE | 2016-06-10 15:12 | PDOC PROGRESS REPORT ---
Subjective Progress Note for:: 06/10/16 Subjective:: Patient was seen by the bedside, she had MRI of the head yesterday and it showed A. tach manifestation of the previously described involving function with involvement of the temporal,parietal , posterior frontal lobe as well as the basal ganglia. Also found was a hemorrhagic component. Physical Exam Vital Signs: Temp Pulse Resp BP Pulse Ox 98.2 F 81 18 164/61 H 94 06/10/16 07:44 06/10/16 07:44 06/10/16 07:44 06/10/16 07:44 06/10/16 07:44 Intake & Output 06/09/16 06/10/16 06/11/16 06:59 06:59 06:59 Intake Total 2795 1144 Output Total 1425 2600 Balance 1370 -1456 Weight 70.2 kg 70 kg General appearance: PRESENT: no acute distress Eye exam: PRESENT: PERRLA Respiratory exam: PRESENT: clear to auscultation maryanne Cardiovascular exam: PRESENT: +S1, +S2 GI/Abdominal exam: PRESENT: soft Neurological exam: PRESENT: alert, other - Left-sided hemiplegia Results Laboratory Results: 06/08/16 06:08 06/08/16 06:08 06/05/16 00:07 Blood Blood Culture - Final NO GROWTH IN 5 DAYS 06/05/16 06/05/16 06/05/16 02:21 02:21 12:12 Creatine Kinase 359 H 1034 H CK-MB (CK-2) 2.40 Troponin I 0.053 06/05/16 06/05/16 06/05/16 12:12 17:55 17:55 Creatine Kinase 1592 H CK-MB (CK-2) 4.46 6.50 H Troponin I 0.037 0.047 Impressions: Chest X-Ray 06/04/16 19:27 IMPRESSION: NO ACUTE RADIOGRAPHIC FINDING IN THE CHEST. Head CT 06/04/16 20:02 IMPRESSION: Patchy parenchymal hypodensities in the right temporal lobe consistent with a subacute MCA distribution infarct, new since the previous MRI. No intracranial hemorrhage or midline shift. Brain MRI with MRA 06/05/16 00:00 IMPRESSION: Large right MCA distribution infarct with hemorrhagic staining over the superficial cortical surface. Mild local mass effect with sulcal and sylvian fissure effacement and flattening of the right lateral ventricle. Abnormal distal right middle cerebral artery at the trifurcation, with a short segment of flow gap. More distally, there is flow identified in the right middle cerebral artery branches, although significantly attenuated in the posterior right middle cerebral artery branches Carotid Doppler Study 06/05/16 00:00 IMPRESSION: NO HEMODYNAMICALLY SIGNIFICANT STENOSIS. Renal Ultrasound 06/05/16 00:00 IMPRESSION: No hydronephrosis. Head MRI 06/09/16 00:00 IMPRESSION: Interval extension of the previously described area of infarction with involvement of the temporal, parietal, and posterior frontal lobes as well as the basal ganglia. This is in a right middle cerebral artery distribution. Hemorrhagic component is again identified. Mild mass effect is noted above. . Other findings as noted above Assessment & Plan - Diagnosis (1) Right middle cerebral artery stroke Is this a current diagnosis for this admission?: YesPlan: I awaiting placement for rehabilitation (2) Flaccid hemiplegia affecting left nondominant side Is this a current diagnosis for this admission?: Yes (3) Diabetes mellitus, type II Qualifiers: Diabetes mellitus complication status: with neurologic complications Diabetes mellitus complication detail: with other neurological complication Diabetes mellitus penitentiary insulin use: without terminal manager use Qualified Code(s): E11.49 - Type 2 diabetes mellitus with other diabetic neurological complication Is this a current diagnosis for this admission?: Yes (4) Acute kidney injury superimposed on chronic kidney disease Is this a current diagnosis for this admission?: Yes (5) Leukocytosis Qualifiers: Leukocytosis type: leukemoid reaction Qualified Code(s): D72.823 - Leukemoid reaction Is this a current diagnosis for this admission?: Yes (6) Essential (primary) hypertension Is this a current diagnosis for this admission?: Yes
[2016-06-10 15:43] LABS: ABSOLUTE BASOPHILS # (AUTO) 0.1 10^3/uL (0.0-0.2); ABSOLUTE EOSINOPHILS # (AUTO) 0.3 10^3/uL (0.0-0.6); ABSOLUTE MONOCYTES (AUTO) 2.3 10^3/uL (0.1-1.4); ABSOLUTE NEUT (AUTO) 12.1 10^3/uL (1.7-8.2); BASOPHILS % (AUTO) 0.8 % (0-2); EOSINOPHILS % (AUTO) 1.7 % (0-6); HEMATOCRIT 34.9 % (36.0-47.0); HEMOGLOBIN 11.7 g/dL (12.0-15.5); HGB HCT DIFFERENCE 0.2; LYMPHOCYTES % (AUTO) 11.9 % (13-45); MEAN CORPUSCULAR HEMOGLOBIN 31.4 pg (27.0-33.4); MEAN CORPUSCULAR HGB CONC 33.6 g/dL (32.0-36.0); MEAN CORPUSCULAR VOLUME 93 fl (80-97); MONOCYTES % (AUTO) 13.7 % (3-13); RED BLOOD COUNT 3.74 10^6/uL (3.72-5.28); SEGMENTED NEUTROPHILS % (AUTO) 71.9 % (42-78); WHITE BLOOD COUNT 16.9 10^3/uL (4.0-10.5)
[2016-06-10 15:56] LABS: ALANINE AMINOTRANSFERASE 21 U/L (9-52); ALBUMIN 2.5 g/dL (3.5-5.0); ALKALINE PHOSPHATASE 58 U/L (38-126); ANION GAP 9 (5-19); ASPARTATE AMINO TRANSFERASE 24 U/L (14-36); BILIRUBIN,TOTAL 0.4 mg/dL (0.2-1.3); BLOOD UREA NITROGEN 17 mg/dL (7-20); CALCIUM 9.1 mg/dL (8.4-10.2); CARBON DIOXIDE 27 mmol/L (22-30); CHLORIDE 106 mmol/L (98-107); CREATININE RESULT 0.87 mg/dL (0.52-1.25); GLUCOSE 131 mg/dL (75-110); POTASSIUM 3.4 mmol/L (3.6-5.0); SODIUM 142.3 mmol/L (137-145); TOTAL PROTEIN 5.1 g/dL (6.3-8.2)
[2016-06-10] MEDS: ATORVASTATIN CALCIUM 80 MG TABLET PO SCH (22:45)
[2016-06-11 05:36] LABS: ABSOLUTE BASOPHILS # (AUTO) 0.1 10^3/uL (0.0-0.2); ABSOLUTE EOSINOPHILS # (AUTO) 0.3 10^3/uL (0.0-0.6); ABSOLUTE LYMPHOCYTES (AUTO) 2.5 10^3/uL (0.5-4.7); ABSOLUTE MONOCYTES (AUTO) 2.3 10^3/uL (0.1-1.4); ABSOLUTE NEUT (AUTO) 12.1 10^3/uL (1.7-8.2); BASOPHILS % (AUTO) 0.4 % (0-2); EOSINOPHILS % (AUTO) 1.9 % (0-6); HEMATOCRIT 33.5 % (36.0-47.0); HGB HCT DIFFERENCE -0.5; LYMPHOCYTES % (AUTO) 14.6 % (13-45); MEAN CORPUSCULAR HEMOGLOBIN 30.8 pg (27.0-33.4); MEAN CORPUSCULAR HGB CONC 32.9 g/dL (32.0-36.0); MEAN CORPUSCULAR VOLUME 94 fl (80-97); MONOCYTES % (AUTO) 13.1 % (3-13); RED BLOOD COUNT 3.59 10^6/uL (3.72-5.28); RED CELL DISTRIBUTION WIDTH 12.9 % (11.5-14.0); WHITE BLOOD COUNT 17.3 10^3/uL (4.0-10.5)
[2016-06-11 05:56] LABS: ALANINE AMINOTRANSFERASE 28 U/L (9-52); ALBUMIN 2.8 g/dL (3.5-5.0); ALKALINE PHOSPHATASE 63 U/L (38-126); ANION GAP 10 (5-19); ASPARTATE AMINO TRANSFERASE 22 U/L (14-36); BILIRUBIN,TOTAL 0.6 mg/dL (0.2-1.3); BLOOD UREA NITROGEN 17 mg/dL (7-20); CALCIUM 9.6 mg/dL (8.4-10.2); CARBON DIOXIDE 26 mmol/L (22-30); CHLORIDE 107 mmol/L (98-107); CREATININE RESULT 0.88 mg/dL (0.52-1.25); GLUCOSE 110 mg/dL (75-110); POTASSIUM 3.7 mmol/L (3.6-5.0); SODIUM 142.6 mmol/L (137-145); TOTAL PROTEIN 5.3 g/dL (6.3-8.2)
[2016-06-11] MEDS: METFORMIN HCL 500 MG TABLET PO SCH ×2 (08:16→15:41)
[2016-06-11] MEDS: OXYCODONE-ACETAMINOPHEN 5-325 MG TABLET PO PRN ×4 (08:17→19:31)
[2016-06-11] MEDS: LOSARTAN POTASSIUM 50 MG TABLET PO SCH (10:56)
[2016-06-11] MEDS: ASPIRIN/DIPYRIDAMOLE 25-200 MG 1 CAP.SR CPMP.12HR PO SCH (10:56)
[2016-06-11] MEDS: LEVOFLOXACIN 750 MG/D5W RTU 750 MG/150 ML RTUPB IV SCH (10:57)
[2016-06-11] MEDS: ENOXAPARIN SODIUM INJ 40 MG/0.4 ML DISP.SYRIN SUBCUT SCH (10:58)
--- NOTE | 2016-06-11 20:03 | PDOC PROGRESS REPORT ---
Subjective Progress Note for:: 06/11/16 Subjective:: She was seen by the bedside, she had episode of vomiting today. Still awaiting placement for rehabilitation Physical Exam Vital Signs: Temp Pulse Resp BP Pulse Ox 98.3 F 88 18 171/61 H 97 06/11/16 12:02 06/11/16 19:00 06/11/16 12:02 06/11/16 12:02 06/11/16 12:02 Intake & Output 06/10/16 06/11/16 06/12/16 06:59 06:59 06:59 Intake Total 1144 1055 368 Output Total 2600 1350 700 Balance -1456 -295 -332 Weight 70 kg 70.3 kg General appearance: PRESENT: no acute distress Eye exam: PRESENT: PERRLA Respiratory exam: PRESENT: clear to auscultation maryanne Cardiovascular exam: PRESENT: +S1, +S2 GI/Abdominal exam: PRESENT: soft Neurological exam: PRESENT: alert, other - Left-sided paralysis Results Laboratory Results: 06/11/16 05:04 06/11/16 05:04 06/11/16 06/11/16 05:04 05:04 WBC 17.3 H RBC 3.59 L Hgb 11.0 L Hct 33.5 L MCV 94 MCH 30.8 MCHC 32.9 RDW 12.9 Plt Count 259 Seg Neutrophils % 70.0 Lymphocytes % 14.6 Monocytes % 13.1 H Eosinophils % 1.9 Basophils % 0.4 Absolute Neutrophils 12.1 H Absolute Lymphocytes 2.5 Absolute Monocytes 2.3 H Absolute Eosinophils 0.3 Absolute Basophils 0.1 Sodium 142.6 Potassium 3.7 Chloride 107 Carbon Dioxide 26 Anion Gap 10 BUN 17 Creatinine 0.88 Est GFR ( Amer) > 60 Est GFR (Non-Af Amer) > 60 Glucose 110 Calcium 9.6 Total Bilirubin 0.6 AST 22 ALT 28 Alkaline Phosphatase 63 Total Protein 5.3 L Albumin 2.8 L 06/05/16 06/05/16 06/05/16 02:21 02:21 12:12 Creatine Kinase 359 H 1034 H CK-MB (CK-2) 2.40 Troponin I 0.053 06/05/16 06/05/16 06/05/16 12:12 17:55 17:55 Creatine Kinase 1592 H CK-MB (CK-2) 4.46 6.50 H Troponin I 0.037 0.047 Impressions: Chest X-Ray 06/04/16 19:27 IMPRESSION: NO ACUTE RADIOGRAPHIC FINDING IN THE CHEST. Head CT 06/04/16 20:02 IMPRESSION: Patchy parenchymal hypodensities in the right temporal lobe consistent with a subacute MCA distribution infarct, new since the previous MRI. No intracranial hemorrhage or midline shift. Brain MRI with MRA 06/05/16 00:00 IMPRESSION: Large right MCA distribution infarct with hemorrhagic staining over the superficial cortical surface. Mild local mass effect with sulcal and sylvian fissure effacement and flattening of the right lateral ventricle. Abnormal distal right middle cerebral artery at the trifurcation, with a short segment of flow gap. More distally, there is flow identified in the right middle cerebral artery branches, although significantly attenuated in the posterior right middle cerebral artery branches Carotid Doppler Study 06/05/16 00:00 IMPRESSION: NO HEMODYNAMICALLY SIGNIFICANT STENOSIS. Renal Ultrasound 06/05/16 00:00 IMPRESSION: No hydronephrosis. Head MRI 06/09/16 00:00 IMPRESSION: Interval extension of the previously described area of infarction with involvement of the temporal, parietal, and posterior frontal lobes as well as the basal ganglia. This is in a right middle cerebral artery distribution. Hemorrhagic component is again identified. Mild mass effect is noted above. . Other findings as noted above Assessment & Plan - Diagnosis (1) Right middle cerebral artery stroke Is this a current diagnosis for this admission?: Yes (2) Flaccid hemiplegia affecting left nondominant side Is this a current diagnosis for this admission?: Yes (3) Diabetes mellitus, type II Qualifiers: Diabetes mellitus complication status: with neurologic complications Diabetes mellitus complication detail: with other neurological complication Diabetes mellitus terminal carman insulin use: without terminal carman use Qualified Code(s): E11.49 - Type 2 diabetes mellitus with other diabetic neurological complication Is this a current diagnosis for this admission?: Yes (4) Acute kidney injury superimposed on chronic kidney disease Is this a current diagnosis for this admission?: Yes (5) Leukocytosis Qualifiers: Leukocytosis type: leukemoid reaction Qualified Code(s): D72.823 - Leukemoid reaction Is this a current diagnosis for this admission?: Yes (6) Essential (primary) hypertension Is this a current diagnosis for this admission?: Yes
[2016-06-12] MEDS: ASPIRIN/DIPYRIDAMOLE 25-200 MG 1 CAP.SR CPMP.12HR PO SCH ×4 (00:37→23:48)
[2016-06-12] MEDS: ATORVASTATIN CALCIUM 80 MG TABLET PO SCH ×2 (00:37→23:47)
[2016-06-12] MEDS: NYSTATIN/DEXAMETH/DIPHEN SUSP 120 ML PO SCH ×4 (02:30→17:20)
[2016-06-12] MEDS: OXYCODONE-ACETAMINOPHEN 5-325 MG TABLET PO PRN ×2 (02:31→13:27)
[2016-06-12] MEDS: METFORMIN HCL 500 MG TABLET PO SCH ×2 (09:07→15:04)
[2016-06-12] MEDS: LOSARTAN POTASSIUM 50 MG TABLET PO SCH (09:29)
[2016-06-12] MEDS: ENOXAPARIN SODIUM INJ 40 MG/0.4 ML DISP.SYRIN SUBCUT SCH (09:30)
[2016-06-12] MEDS: ONDANSETRON HCL INJ/PF 4 MG/2 ML SDV IV PRN (15:03)
[2016-06-12] MEDS: INSULIN LISPRO 100 UNIT/ML 3 ML VIAL SUBCUT PRN (18:02)
[2016-06-13] MEDS: ACETAMINOPHEN 325 MG TABLET PO PRN (03:35)
[2016-06-13] MEDS: NYSTATIN/DEXAMETH/DIPHEN SUSP 120 ML PO SCH ×4 (05:05→18:33)
[2016-06-13] MEDS: OXYCODONE-ACETAMINOPHEN 5-325 MG TABLET PO PRN (09:39)
[2016-06-13] MEDS: METFORMIN HCL 500 MG TABLET PO SCH ×2 (09:39→18:33)
[2016-06-13] MEDS: ENOXAPARIN SODIUM INJ 40 MG/0.4 ML DISP.SYRIN SUBCUT SCH (09:40)
[2016-06-13] MEDS: LOSARTAN POTASSIUM 50 MG TABLET PO SCH (09:40)
[2016-06-13] MEDS ORDERED: ASPIRIN/DIPYRIDAMOLE 25-200 MG 1 CAP.SR CPMP.12HR PO ONE (10:15)
[2016-06-13] MEDS: INSULIN LISPRO 100 UNIT/ML 3 ML VIAL SUBCUT PRN (12:07)
--- NOTE | 2016-06-13 18:57 | PDOC PROGRESS REPORT ---
Subjective Progress Note for:: 06/13/16 Subjective:: Patient was seen by the bedside Physical Exam Vital Signs: Temp Pulse Resp BP Pulse Ox 98.6 F 83 20 146/58 H 99 06/13/16 11:55 06/13/16 14:00 06/13/16 11:55 06/13/16 11:55 06/13/16 11:55 Intake & Output 06/12/16 06/13/16 06/14/16 06:59 06:59 06:59 Intake Total 378 1279 140 Output Total 1450 1050 450 Balance -1072 229 -310 Weight 70 kg 67.6 kg General appearance: PRESENT: no acute distress Eye exam: PRESENT: PERRLA Respiratory exam: PRESENT: clear to auscultation maryanne Cardiovascular exam: PRESENT: +S1, +S2 GI/Abdominal exam: PRESENT: soft Neurological exam: PRESENT: alert, other - Left side. Flaccid hemiplegia Results Laboratory Results: 06/11/16 05:04 06/11/16 05:04 06/05/16 06/05/16 06/05/16 02:21 02:21 12:12 Creatine Kinase 359 H 1034 H CK-MB (CK-2) 2.40 Troponin I 0.053 06/05/16 06/05/16 06/05/16 12:12 17:55 17:55 Creatine Kinase 1592 H CK-MB (CK-2) 4.46 6.50 H Troponin I 0.037 0.047 Impressions: Chest X-Ray 06/04/16 19:27 IMPRESSION: NO ACUTE RADIOGRAPHIC FINDING IN THE CHEST. Head CT 06/04/16 20:02 IMPRESSION: Patchy parenchymal hypodensities in the right temporal lobe consistent with a subacute MCA distribution infarct, new since the previous MRI. No intracranial hemorrhage or midline shift. Brain MRI with MRA 06/05/16 00:00 IMPRESSION: Large right MCA distribution infarct with hemorrhagic staining over the superficial cortical surface. Mild local mass effect with sulcal and sylvian fissure effacement and flattening of the right lateral ventricle. Abnormal distal right middle cerebral artery at the trifurcation, with a short segment of flow gap. More distally, there is flow identified in the right middle cerebral artery branches, although significantly attenuated in the posterior right middle cerebral artery branches Carotid Doppler Study 06/05/16 00:00 IMPRESSION: NO HEMODYNAMICALLY SIGNIFICANT STENOSIS. Renal Ultrasound 06/05/16 00:00 IMPRESSION: No hydronephrosis. Head MRI 06/09/16 00:00 IMPRESSION: Interval extension of the previously described area of infarction with involvement of the temporal, parietal, and posterior frontal lobes as well as the basal ganglia. This is in a right middle cerebral artery distribution. Hemorrhagic component is again identified. Mild mass effect is noted above. . Other findings as noted above Assessment & Plan - Diagnosis (1) Right middle cerebral artery stroke Is this a current diagnosis for this admission?: Yes (2) Flaccid hemiplegia affecting left nondominant side Is this a current diagnosis for this admission?: Yes (3) Diabetes mellitus, type II Qualifiers: Diabetes mellitus complication status: with neurologic complications Diabetes mellitus complication detail: with other neurological complication Diabetes mellitus [facility] insulin use: without bed bug exterminator use Qualified Code(s): E11.49 - Type 2 diabetes mellitus with other diabetic neurological complication Is this a current diagnosis for this admission?: Yes (4) Acute kidney injury superimposed on chronic kidney disease Is this a current diagnosis for this admission?: Yes (5) Leukocytosis Qualifiers: Leukocytosis type: leukemoid reaction Qualified Code(s): D72.823 - Leukemoid reaction Is this a current diagnosis for this admission?: Yes (6) Essential (primary) hypertension Is this a current diagnosis for this admission?: Yes
--- NOTE | 2016-06-13 19:00 | PDOC PROGRESS REPORT ---
Subjective Progress Note for:: 06/13/16 Subjective:: Patient seen by the bedside, awaiting placement for rehabilitation Physical Exam Vital Signs: Temp Pulse Resp BP Pulse Ox 98.6 F 83 20 146/58 H 99 06/13/16 11:55 06/13/16 14:00 06/13/16 11:55 06/13/16 11:55 06/13/16 11:55 Intake & Output 06/12/16 06/13/16 06/14/16 06:59 06:59 06:59 Intake Total 378 1279 340 Output Total 1450 1050 930 Balance -1072 229 -590 Weight 70 kg 67.6 kg General appearance: PRESENT: no acute distress Eye exam: PRESENT: PERRLA Respiratory exam: PRESENT: clear to auscultation maryanne Cardiovascular exam: PRESENT: +S1, +S2 GI/Abdominal exam: PRESENT: soft Neurological exam: PRESENT: alert Results Laboratory Results: 06/11/16 05:04 06/11/16 05:04 06/05/16 06/05/16 06/05/16 02:21 02:21 12:12 Creatine Kinase 359 H 1034 H CK-MB (CK-2) 2.40 Troponin I 0.053 06/05/16 06/05/16 06/05/16 12:12 17:55 17:55 Creatine Kinase 1592 H CK-MB (CK-2) 4.46 6.50 H Troponin I 0.037 0.047 Impressions: Chest X-Ray 06/04/16 19:27 IMPRESSION: NO ACUTE RADIOGRAPHIC FINDING IN THE CHEST. Head CT 06/04/16 20:02 IMPRESSION: Patchy parenchymal hypodensities in the right temporal lobe consistent with a subacute MCA distribution infarct, new since the previous MRI. No intracranial hemorrhage or midline shift. Brain MRI with MRA 06/05/16 00:00 IMPRESSION: Large right MCA distribution infarct with hemorrhagic staining over the superficial cortical surface. Mild local mass effect with sulcal and sylvian fissure effacement and flattening of the right lateral ventricle. Abnormal distal right middle cerebral artery at the trifurcation, with a short segment of flow gap. More distally, there is flow identified in the right middle cerebral artery branches, although significantly attenuated in the posterior right middle cerebral artery branches Carotid Doppler Study 06/05/16 00:00 IMPRESSION: NO HEMODYNAMICALLY SIGNIFICANT STENOSIS. Renal Ultrasound 06/05/16 00:00 IMPRESSION: No hydronephrosis. Head MRI 06/09/16 00:00 IMPRESSION: Interval extension of the previously described area of infarction with involvement of the temporal, parietal, and posterior frontal lobes as well as the basal ganglia. This is in a right middle cerebral artery distribution. Hemorrhagic component is again identified. Mild mass effect is noted above. . Other findings as noted above Assessment & Plan - Diagnosis (1) Right middle cerebral artery stroke Is this a current diagnosis for this admission?: Yes (2) Flaccid hemiplegia affecting left nondominant side Is this a current diagnosis for this admission?: Yes (3) Diabetes mellitus, type II Qualifiers: Diabetes mellitus complication status: with neurologic complications Diabetes mellitus complication detail: with other neurological complication Diabetes mellitus group home insulin use: without clay mixer use Qualified Code(s): E11.49 - Type 2 diabetes mellitus with other diabetic neurological complication Is this a current diagnosis for this admission?: Yes (4) Acute kidney injury superimposed on chronic kidney disease Is this a current diagnosis for this admission?: Yes (5) Leukocytosis Qualifiers: Leukocytosis type: leukemoid reaction Qualified Code(s): D72.823 - Leukemoid reaction Is this a current diagnosis for this admission?: Yes (6) Essential (primary) hypertension Is this a current diagnosis for this admission?: Yes
[2016-06-13 19:40] LABS: ABSOLUTE BASOPHILS # (AUTO) 0.1 10^3/uL (0.0-0.2); ABSOLUTE EOSINOPHILS # (AUTO) 0.2 10^3/uL (0.0-0.6); ABSOLUTE MONOCYTES (AUTO) 1.6 10^3/uL (0.1-1.4); ABSOLUTE NEUT (AUTO) 11.3 10^3/uL (1.7-8.2); BASOPHILS % (AUTO) 0.7 % (0-2); EOSINOPHILS % (AUTO) 1.3 % (0-6); HEMATOCRIT 35.7 % (36.0-47.0); HEMOGLOBIN 11.5 g/dL (12.0-15.5); HGB HCT DIFFERENCE -1.2; LYMPHOCYTES % (AUTO) 13.2 % (13-45); MEAN CORPUSCULAR HEMOGLOBIN 30.6 pg (27.0-33.4); MEAN CORPUSCULAR HGB CONC 32.2 g/dL (32.0-36.0); MEAN CORPUSCULAR VOLUME 95 fl (80-97); MONOCYTES % (AUTO) 10.6 % (3-13); RED BLOOD COUNT 3.76 10^6/uL (3.72-5.28); RED CELL DISTRIBUTION WIDTH 13.1 % (11.5-14.0); SEGMENTED NEUTROPHILS % (AUTO) 74.2 % (42-78); WHITE BLOOD COUNT 15.2 10^3/uL (4.0-10.5)
[2016-06-13 20:00] LABS: ALANINE AMINOTRANSFERASE 36 U/L (9-52); ALBUMIN 2.8 g/dL (3.5-5.0); ALKALINE PHOSPHATASE 67 U/L (38-126); ANION GAP 11 (5-19); ASPARTATE AMINO TRANSFERASE 52 U/L (14-36); BILIRUBIN,TOTAL 0.5 mg/dL (0.2-1.3); BLOOD UREA NITROGEN 20 mg/dL (7-20); CALCIUM 9.3 mg/dL (8.4-10.2); CARBON DIOXIDE 29 mmol/L (22-30); CHLORIDE 102 mmol/L (98-107); CREATININE RESULT 0.84 mg/dL (0.52-1.25); GLUCOSE 128 mg/dL (75-110); POTASSIUM 3.8 mmol/L (3.6-5.0); SODIUM 141.6 mmol/L (137-145); TOTAL PROTEIN 5.5 g/dL (6.3-8.2)
[2016-06-14] MEDS: ATORVASTATIN CALCIUM 80 MG TABLET PO SCH ×2 (01:21→22:58)
[2016-06-14] MEDS: NYSTATIN/DEXAMETH/DIPHEN SUSP 120 ML PO SCH ×5 (01:21→22:59)
[2016-06-14] MEDS: ASPIRIN/DIPYRIDAMOLE 25-200 MG 1 CAP.SR CPMP.12HR PO SCH ×3 (01:21→22:01)
[2016-06-14 05:46] LABS: ABSOLUTE EOSINOPHILS # (AUTO) 0.3 10^3/uL (0.0-0.6); ABSOLUTE LYMPHOCYTES (AUTO) 2.9 10^3/uL (0.5-4.7); ABSOLUTE MONOCYTES (AUTO) 1.5 10^3/uL (0.1-1.4); ABSOLUTE NEUT (AUTO) 9.3 10^3/uL (1.7-8.2); BASOPHILS % (AUTO) 0.2 % (0-2); HEMATOCRIT 36.6 % (36.0-47.0); HEMOGLOBIN 11.5 g/dL (12.0-15.5); HGB HCT DIFFERENCE -2.1; LYMPHOCYTES % (AUTO) 20.5 % (13-45); MEAN CORPUSCULAR HEMOGLOBIN 29.9 pg (27.0-33.4); MEAN CORPUSCULAR HGB CONC 31.5 g/dL (32.0-36.0); MEAN CORPUSCULAR VOLUME 95 fl (80-97); MONOCYTES % (AUTO) 10.7 % (3-13); RED BLOOD COUNT 3.85 10^6/uL (3.72-5.28); RED CELL DISTRIBUTION WIDTH 12.9 % (11.5-14.0); SEGMENTED NEUTROPHILS % (AUTO) 66.6 % (42-78)
[2016-06-14 06:17] LABS: ALANINE AMINOTRANSFERASE 56 U/L (9-52); ALBUMIN 3.5 g/dL (3.5-5.0); ALKALINE PHOSPHATASE 73 U/L (38-126); ANION GAP 9 (5-19); ASPARTATE AMINO TRANSFERASE 78 U/L (14-36); BILIRUBIN,TOTAL 0.5 mg/dL (0.2-1.3); BLOOD UREA NITROGEN 18 mg/dL (7-20); CALCIUM 8.9 mg/dL (8.4-10.2); CARBON DIOXIDE 30 mmol/L (22-30); CHLORIDE 103 mmol/L (98-107); CREATININE RESULT 0.78 mg/dL (0.52-1.25); GLUCOSE 96 mg/dL (75-110); POTASSIUM 3.4 mmol/L (3.6-5.0); SODIUM 141.9 mmol/L (137-145); TOTAL PROTEIN 6.3 g/dL (6.3-8.2)
[2016-06-14] MEDS: METFORMIN HCL 500 MG TABLET PO SCH ×2 (09:17→18:19)
[2016-06-14] MEDS: LOSARTAN POTASSIUM 50 MG TABLET PO SCH (09:18)
[2016-06-14] MEDS: ENOXAPARIN SODIUM INJ 40 MG/0.4 ML DISP.SYRIN SUBCUT SCH (09:19)
--- NOTE | 2016-06-14 18:02 | PDOC PROGRESS REPORT ---
Subjective Progress Note for:: 06/14/16 Subjective:: Patient is seen by the bedside, she has CVA with left-sided paralysis Physical Exam Vital Signs: Temp Pulse Resp BP Pulse Ox 98.3 F 96 16 150/69 H 91 L 06/14/16 15:28 06/14/16 15:28 06/14/16 15:28 06/14/16 15:28 06/14/16 15:28 Intake & Output 06/13/16 06/14/16 06/15/16 06:59 06:59 06:59 Intake Total 1279 400 240 Output Total 1050 1533 500 Balance 120 -3413 -509 Weight 67.6 kg 67 kg General appearance: PRESENT: no acute distress Eye exam: PRESENT: PERRLA Respiratory exam: PRESENT: clear to auscultation maryanne Cardiovascular exam: PRESENT: +S1, +S2 Neurological exam: PRESENT: alert, other - Flaccid left-sided paralysis Results Laboratory Results: 06/14/16 05:07 06/14/16 05:07 06/13/16 06/13/16 06/14/16 19:24 19:24 05:07 WBC 15.2 H 14.0 H RBC 3.76 3.85 Hgb 11.5 L 11.5 L Hct 35.7 L 36.6 MCV 95 95 MCH 30.6 29.9 MCHC 32.2 31.5 L RDW 13.1 12.9 Plt Count 319 306 Seg Neutrophils % 74.2 66.6 Lymphocytes % 13.2 20.5 Monocytes % 10.6 10.7 Eosinophils % 1.3 2.0 Basophils % 0.7 0.2 Absolute Neutrophils 11.3 H 9.3 H Absolute Lymphocytes 2.0 2.9 Absolute Monocytes 1.6 H 1.5 H Absolute Eosinophils 0.2 0.3 Absolute Basophils 0.1 0.0 Sodium 141.6 Potassium 3.8 Chloride 102 Carbon Dioxide 29 Anion Gap 11 BUN 20 Creatinine 0.84 Est GFR ( Amer) > 60 Est GFR (Non-Af Amer) > 60 Glucose 128 H Calcium 9.3 Total Bilirubin 0.5 AST 52 H ALT 36 Alkaline Phosphatase 67 Total Protein 5.5 L Albumin 2.8 L 06/14/16 05:07 WBC RBC Hgb Hct MCV MCH MCHC RDW Plt Count Seg Neutrophils % Lymphocytes % Monocytes % Eosinophils % Basophils % Absolute Neutrophils Absolute Lymphocytes Absolute Monocytes Absolute Eosinophils Absolute Basophils Sodium 141.9 Potassium 3.4 L Chloride 103 Carbon Dioxide 30 Anion Gap 9 BUN 18 Creatinine 0.78 Est GFR ( Amer) > 60 Est GFR (Non-Af Amer) > 60 Glucose 96 Calcium 8.9 Total Bilirubin 0.5 AST 78 H ALT 56 H Alkaline Phosphatase 73 Total Protein 6.3 Albumin 3.5 06/05/16 06/05/16 06/05/16 02:21 02:21 12:12 Creatine Kinase 359 H 1034 H CK-MB (CK-2) 2.40 Troponin I 0.053 06/05/16 06/05/16 06/05/16 12:12 17:55 17:55 Creatine Kinase 1592 H CK-MB (CK-2) 4.46 6.50 H Troponin I 0.037 0.047 Impressions: Chest X-Ray 06/04/16 19:27 IMPRESSION: NO ACUTE RADIOGRAPHIC FINDING IN THE CHEST. Head CT 06/04/16 20:02 IMPRESSION: Patchy parenchymal hypodensities in the right temporal lobe consistent with a subacute MCA distribution infarct, new since the previous MRI. No intracranial hemorrhage or midline shift. Brain MRI with MRA 06/05/16 00:00 IMPRESSION: Large right MCA distribution infarct with hemorrhagic staining over the superficial cortical surface. Mild local mass effect with sulcal and sylvian fissure effacement and flattening of the right lateral ventricle. Abnormal distal right middle cerebral artery at the trifurcation, with a short segment of flow gap. More distally, there is flow identified in the right middle cerebral artery branches, although significantly attenuated in the posterior right middle cerebral artery branches Carotid Doppler Study 06/05/16 00:00 IMPRESSION: NO HEMODYNAMICALLY SIGNIFICANT STENOSIS. Renal Ultrasound 06/05/16 00:00 IMPRESSION: No hydronephrosis. Head MRI 06/09/16 00:00 IMPRESSION: Interval extension of the previously described area of infarction with involvement of the temporal, parietal, and posterior frontal lobes as well as the basal ganglia. This is in a right middle cerebral artery distribution. Hemorrhagic component is again identified. Mild mass effect is noted above. . Other findings as noted above Assessment & Plan - Diagnosis (1) Right middle cerebral artery stroke Is this a current diagnosis for this admission?: Yes (2) Flaccid hemiplegia affecting left nondominant side Is this a current diagnosis for this admission?: Yes (3) Diabetes mellitus, type II Qualifiers: Diabetes mellitus complication status: with neurologic complications Diabetes mellitus complication detail: with other neurological complication Diabetes mellitus prison insulin use: without prison use Qualified Code(s): E11.49 - Type 2 diabetes mellitus with other diabetic neurological complication Is this a current diagnosis for this admission?: Yes (4) Acute kidney injury superimposed on chronic kidney disease Is this a current diagnosis for this admission?: YesPlan: This is resolved (5) Leukocytosis Qualifiers: Leukocytosis type: leukemoid reaction Qualified Code(s): D72.823 - Leukemoid reaction Is this a current diagnosis for this admission?: Yes (6) Essential (primary) hypertension Is this a current diagnosis for this admission?: Yes
[2016-06-14] MEDS: LABETALOL HCL INJ 20 MG/4 ML DISP.SYRIN IV PRN (20:12)
[2016-06-15] MEDS: LABETALOL HCL INJ 20 MG/4 ML DISP.SYRIN IV PRN (04:39)
[2016-06-15] MEDS: ASPIRIN/DIPYRIDAMOLE 25-200 MG 1 CAP.SR CPMP.12HR PO SCH ×2 (10:58→22:01)
[2016-06-15] MEDS: LOSARTAN POTASSIUM 50 MG TABLET PO SCH (10:58)
[2016-06-15] MEDS: METFORMIN HCL 500 MG TABLET PO SCH ×2 (10:58→17:16)
[2016-06-15] MEDS: ENOXAPARIN SODIUM INJ 40 MG/0.4 ML DISP.SYRIN SUBCUT SCH (11:28)
[2016-06-15] MEDS: NYSTATIN/DEXAMETH/DIPHEN SUSP 120 ML PO SCH ×4 (11:28→22:06)
--- NOTE | 2016-06-15 18:43 | PDOC PROGRESS REPORT ---
Subjective Progress Note for:: 06/15/16 Subjective:: Patient is seen by the bedside, she has CVA with left-sided paralysis Physical Exam Vital Signs: Temp Pulse Resp BP Pulse Ox 98.3 F 51 L 18 150/54 H 95 06/15/16 15:58 06/15/16 15:58 06/15/16 15:58 06/15/16 15:58 06/15/16 15:58 Intake & Output 06/14/16 06/15/16 06/16/16 06:59 06:59 06:59 Intake Total 400 665 110 Output Total 1533 1050 300 Balance -1133 -385 -190 Weight 67 kg 71 kg General appearance: PRESENT: no acute distress Eye exam: PRESENT: PERRLA Respiratory exam: PRESENT: clear to auscultation maryanne Cardiovascular exam: PRESENT: +S1, +S2 Results Laboratory Results: 06/14/16 05:07 06/14/16 05:07 06/05/16 06/05/16 06/05/16 02:21 02:21 12:12 Creatine Kinase 359 H 1034 H CK-MB (CK-2) 2.40 Troponin I 0.053 06/05/16 06/05/16 06/05/16 12:12 17:55 17:55 Creatine Kinase 1592 H CK-MB (CK-2) 4.46 6.50 H Troponin I 0.037 0.047 Impressions: Chest X-Ray 06/04/16 19:27 IMPRESSION: NO ACUTE RADIOGRAPHIC FINDING IN THE CHEST. Head CT 06/04/16 20:02 IMPRESSION: Patchy parenchymal hypodensities in the right temporal lobe consistent with a subacute MCA distribution infarct, new since the previous MRI. No intracranial hemorrhage or midline shift. Brain MRI with MRA 06/05/16 00:00 IMPRESSION: Large right MCA distribution infarct with hemorrhagic staining over the superficial cortical surface. Mild local mass effect with sulcal and sylvian fissure effacement and flattening of the right lateral ventricle. Abnormal distal right middle cerebral artery at the trifurcation, with a short segment of flow gap. More distally, there is flow identified in the right middle cerebral artery branches, although significantly attenuated in the posterior right middle cerebral artery branches Carotid Doppler Study 06/05/16 00:00 IMPRESSION: NO HEMODYNAMICALLY SIGNIFICANT STENOSIS. Renal Ultrasound 06/05/16 00:00 IMPRESSION: No hydronephrosis. Head MRI 06/09/16 00:00 IMPRESSION: Interval extension of the previously described area of infarction with involvement of the temporal, parietal, and posterior frontal lobes as well as the basal ganglia. This is in a right middle cerebral artery distribution. Hemorrhagic component is again identified. Mild mass effect is noted above. . Other findings as noted above Assessment & Plan - Diagnosis (1) Right middle cerebral artery stroke Is this a current diagnosis for this admission?: Yes (2) Flaccid hemiplegia affecting left nondominant side Is this a current diagnosis for this admission?: Yes (3) Diabetes mellitus, type II Qualifiers: Diabetes mellitus complication status: with neurologic complications Diabetes mellitus complication detail: with other neurological complication Diabetes mellitus extermination supervisor insulin use: without extermination supervisor use Qualified Code(s): E11.49 - Type 2 diabetes mellitus with other diabetic neurological complication Is this a current diagnosis for this admission?: Yes (4) Acute kidney injury superimposed on chronic kidney disease Is this a current diagnosis for this admission?: Yes (5) Leukocytosis Qualifiers: Leukocytosis type: leukemoid reaction Qualified Code(s): D72.823 - Leukemoid reaction Is this a current diagnosis for this admission?: Yes (6) Essential (primary) hypertension Is this a current diagnosis for this admission?: Yes
[2016-06-15] MEDS: ATORVASTATIN CALCIUM 80 MG TABLET PO SCH (22:01)
[2016-06-16] MEDS: ASPIRIN/DIPYRIDAMOLE 25-200 MG 1 CAP.SR CPMP.12HR PO SCH ×2 (09:21→21:20)
[2016-06-16] MEDS: LOSARTAN POTASSIUM 50 MG TABLET PO SCH (09:21)
[2016-06-16] MEDS: METFORMIN HCL 500 MG TABLET PO SCH ×2 (09:21→17:03)
[2016-06-16] MEDS: NYSTATIN/DEXAMETH/DIPHEN SUSP 120 ML PO SCH ×4 (09:22→21:23)
[2016-06-16] MEDS: OXYCODONE-ACETAMINOPHEN 5-325 MG TABLET PO PRN (15:21)
--- NOTE | 2016-06-16 20:46 | PDOC PROGRESS REPORT ---
Subjective Progress Note for:: 06/16/16 Subjective:: Patient was seen by the bedside, she was denied placement in [place] on family is requesting for transfer to [place] for rehabitation that is going to be very challenging because it is out of state Physical Exam Vital Signs: Temp Pulse Resp BP Pulse Ox 97.9 F 97 20 149/64 H 93 06/16/16 19:32 06/16/16 19:32 06/16/16 19:32 06/16/16 19:32 06/16/16 19:32 Intake & Output 06/15/16 06/16/16 06/17/16 06:59 06:59 06:59 Intake Total 665 230 0 Output Total 1050 1100 250 Balance -385 -870 -250 Weight 71 kg 71 kg General appearance: PRESENT: no acute distress Eye exam: PRESENT: PERRLA Respiratory exam: PRESENT: clear to auscultation maryanne Cardiovascular exam: PRESENT: +S1, +S2 GI/Abdominal exam: PRESENT: soft Results Laboratory Results: 06/14/16 05:07 06/14/16 05:07 06/05/16 06/05/16 06/05/16 02:21 02:21 12:12 Creatine Kinase 359 H 1034 H CK-MB (CK-2) 2.40 Troponin I 0.053 06/05/16 06/05/16 06/05/16 12:12 17:55 17:55 Creatine Kinase 1592 H CK-MB (CK-2) 4.46 6.50 H Troponin I 0.037 0.047 Impressions: Chest X-Ray 06/04/16 19:27 IMPRESSION: NO ACUTE RADIOGRAPHIC FINDING IN THE CHEST. Head CT 06/04/16 20:02 IMPRESSION: Patchy parenchymal hypodensities in the right temporal lobe consistent with a subacute MCA distribution infarct, new since the previous MRI. No intracranial hemorrhage or midline shift. Brain MRI with MRA 06/05/16 00:00 IMPRESSION: Large right MCA distribution infarct with hemorrhagic staining over the superficial cortical surface. Mild local mass effect with sulcal and sylvian fissure effacement and flattening of the right lateral ventricle. Abnormal distal right middle cerebral artery at the trifurcation, with a short segment of flow gap. More distally, there is flow identified in the right middle cerebral artery branches, although significantly attenuated in the posterior right middle cerebral artery branches Carotid Doppler Study 06/05/16 00:00 IMPRESSION: NO HEMODYNAMICALLY SIGNIFICANT STENOSIS. Renal Ultrasound 06/05/16 00:00 IMPRESSION: No hydronephrosis. Head MRI 06/09/16 00:00 IMPRESSION: Interval extension of the previously described area of infarction with involvement of the temporal, parietal, and posterior frontal lobes as well as the basal ganglia. This is in a right middle cerebral artery distribution. Hemorrhagic component is again identified. Mild mass effect is noted above. . Other findings as noted above Assessment & Plan - Diagnosis (1) Right middle cerebral artery stroke Is this a current diagnosis for this admission?: Yes (2) Flaccid hemiplegia affecting left nondominant side Is this a current diagnosis for this admission?: Yes (3) Diabetes mellitus, type II Qualifiers: Diabetes mellitus complication status: with neurologic complications Diabetes mellitus complication detail: with other neurological complication Diabetes mellitus [facility] insulin use: without intermediate designer use Qualified Code(s): E11.49 - Type 2 diabetes mellitus with other diabetic neurological complication Is this a current diagnosis for this admission?: Yes (4) Acute kidney injury superimposed on chronic kidney disease Is this a current diagnosis for this admission?: Yes (5) Leukocytosis Qualifiers: Leukocytosis type: leukemoid reaction Qualified Code(s): D72.823 - Leukemoid reaction Is this a current diagnosis for this admission?: Yes (6) Essential (primary) hypertension Is this a current diagnosis for this admission?: Yes
[2016-06-16] MEDS: ATORVASTATIN CALCIUM 80 MG TABLET PO SCH (21:20)
[2016-06-17] MEDS: OXYCODONE-ACETAMINOPHEN 5-325 MG TABLET PO PRN (02:07)
[2016-06-17] MEDS: METFORMIN HCL 500 MG TABLET PO SCH ×2 (09:13→16:00)
[2016-06-17] MEDS: LOSARTAN POTASSIUM 50 MG TABLET PO SCH (09:13)
[2016-06-17] MEDS: ASPIRIN/DIPYRIDAMOLE 25-200 MG 1 CAP.SR CPMP.12HR PO SCH ×2 (09:13→21:49)
[2016-06-17] MEDS: NYSTATIN/DEXAMETH/DIPHEN SUSP 120 ML PO SCH ×4 (09:14→21:55)
--- NOTE | 2016-06-17 16:31 | PDOC TRANSFER SUMMARY ---
General - Admit/Disc Date/PCP Admission Date/Primary Care Provider: 06/04/16 23:40 DAYO CHANDLER, Discharge Date: 06/17/16 - Discharge Diagnosis (1) Right middle cerebral artery stroke Is this a current diagnosis for this admission?: Yes (2) Flaccid hemiplegia affecting left nondominant side Is this a current diagnosis for this admission?: Yes (3) Diabetes mellitus, type II Is this a current diagnosis for this admission?: Yes (4) Acute kidney injury superimposed on chronic kidney disease Is this a current diagnosis for this admission?: Yes (5) Leukocytosis Is this a current diagnosis for this admission?: Yes (6) Essential (primary) hypertension Is this a current diagnosis for this admission?: Yes - Additional Information Resuscitation Status: Full Code Home Medications: Acetaminophen [Tylenol 325 mg Tablet] 325 mg PO Q4HP PRN 06/05/16 Canagliflozin [Invokana] 100 mg PO DAILY 06/05/16 Losartan/Hydrochlorothiazide [Hyzaar 50-12.5 Tablet] 1 each PO DAILY 06/05/16 Tramadol HCl/Acetaminophen [Ultracet 37.5 mg/325 mg Tablet] 1 tab PO Q6 Aspirin/Dipyridamole [Aggrenox 25 mg/200 mg Capsule SA] 1 cap.sr PO Q12 #0 cpmp.12hr 06/17/16 Atorvastatin Calcium [Lipitor 80 mg Tablet] 80 mg PO QHS #0 tablet 06/17/16 Metformin HCl [Metformin HCl ER] 1,000 mg PO BID #0 [id number] 06/17/16 History of Present Illness Admission Date/PCP: 06/04/16 23:40 DAYO CHANDLER, History of Present Illness: MIGUEL ANGEL LAZCANO is a 65 year old female with history of diabetes mellitus type II , hypertension, chronic kidney disease stage III, she was transferred to the emergency room last night, the history was that patient's family was unable to get in contact with the patient for 3 days, patient's family decided to visit Patient's residence, they have to breakdown the the door to get inside the residence, patient was found on the floor confused and she was not moving the left side of her body, in the emergency room she was seen, CT head was done without contrast, it showed patchy parenchyma hypodensities in the right temporal lobe consistent with middle cerebral artery distribution infarction. Subsequent MRI brain was done and it showed a large acute right middle cerebral artery distribution infarction involving the right basal ganglia, external capsule , insular cortex extending into the right posterior temporal Cortex. There is hematologic signal along the surface of the right perisylvian cortex with mild mass effect. MRA of the brain showed I grade stenosis at the trifurcation of the right middle cerebral artery. When I saw patient, she is unresponsive. I saw family by the bedside, the son and the daughter, family wants patient to be DO NOT RESUSCITATE Hospital Course Hospital Course: Patient was admitted with large right MCA territory infarct, very extensive with involvement of the right temporal lobe,parietal lobe and posterior frontal lobe as well as the basal ganglia on the right side. There was mild hemorrhagic transformation. She has associated left-sided flaccid paralysis. She was managed per stroke protocol, she had 2-D echo done, carotid Doppler. The Doppler was normal. There was no stenosis of the carotid artery. Initially patient was unresponsive and she was made a DO NOT RESUSCITATE status , she subsequently regained full consciousness. She had severe leukocytosis, when she presented initially this was thought to be due to the stress of the stroke. She was empirically treated for UTI. She also had prerenal acute kidney injury, with hydration,There was normalization of kidney function + Physical Exam Vital Signs: Temp Pulse Resp BP Pulse Ox 98.4 F 99 16 137/55 H 90 L 06/17/16 07:28 06/17/16 14:00 06/17/16 07:28 06/17/16 07:28 06/17/16 07:28 Intake & Output 06/16/16 06/17/16 06/18/16 06:59 06:59 06:59 Intake Total 230 150 Output Total 1100 625 Balance -870 -475 Weight 71 kg 67.3 kg General appearance: PRESENT: no acute distress Eye exam: PRESENT: PERRLA Respiratory exam: PRESENT: clear to auscultation maryanne Cardiovascular exam: PRESENT: +S1, +S2 GI/Abdominal exam: PRESENT: soft Neurological exam: PRESENT: alert, other - Left-sided flaccid hemiplegia Results Laboratory Results: 06/14/16 05:07 06/14/16 05:07 06/05/16 06/05/16 06/05/16 02:21 02:21 12:12 Creatine Kinase 359 H 1034 H CK-MB (CK-2) 2.40 Troponin I 0.053 06/05/16 06/05/16 06/05/16 12:12 17:55 17:55 Creatine Kinase 1592 H CK-MB (CK-2) 4.46 6.50 H Troponin I 0.037 0.047 Impressions: Chest X-Ray 06/04/16 19:27 IMPRESSION: NO ACUTE RADIOGRAPHIC FINDING IN THE CHEST. Head CT 06/04/16 20:02 IMPRESSION: Patchy parenchymal hypodensities in the right temporal lobe consistent with a subacute MCA distribution infarct, new since the previous MRI. No intracranial hemorrhage or midline shift. Brain MRI with MRA 06/05/16 00:00 IMPRESSION: Large right MCA distribution infarct with hemorrhagic staining over the superficial cortical surface. Mild local mass effect with sulcal and sylvian fissure effacement and flattening of the right lateral ventricle. Abnormal distal right middle cerebral artery at the trifurcation, with a short segment of flow gap. More distally, there is flow identified in the right middle cerebral artery branches, although significantly attenuated in the posterior right middle cerebral artery branches Carotid Doppler Study 06/05/16 00:00 IMPRESSION: NO HEMODYNAMICALLY SIGNIFICANT STENOSIS. Renal Ultrasound 06/05/16 00:00 IMPRESSION: No hydronephrosis. Head MRI 06/09/16 00:00 IMPRESSION: Interval extension of the previously described area of infarction with involvement of the temporal, parietal, and posterior frontal lobes as well as the basal ganglia. This is in a right middle cerebral artery distribution. Hemorrhagic component is again identified. Mild mass effect is noted above. . Other findings as noted above Transfer Plan - Disposition Transfer Plan: Patient to be transfer to the retirement for rehabilitation
[2016-06-17] MEDS: ATORVASTATIN CALCIUM 80 MG TABLET PO SCH (21:49)
[2016-06-17] MEDS: ONDANSETRON HCL INJ/PF 4 MG/2 ML SDV IV PRN (23:53)
[2016-06-18] MEDS: INSULIN LISPRO 100 UNIT/ML 3 ML VIAL SUBCUT PRN (08:41)
[2016-06-18] MEDS: METFORMIN HCL 500 MG TABLET PO SCH (08:42)
[2016-06-18 09:18] VITALS: BP 115/49
[2016-06-18] MEDS: ASPIRIN/DIPYRIDAMOLE 25-200 MG 1 CAP.SR CPMP.12HR PO SCH (09:31)
[2016-06-18] MEDS: LOSARTAN POTASSIUM 50 MG TABLET PO SCH (09:31)
[2016-06-18] MEDS: NYSTATIN/DEXAMETH/DIPHEN SUSP 120 ML PO SCH (09:33)
== END 2016-06-18 10:53 | DRG 65 ==
LOC: ER 19:18 → UNDOADMIN 23:29 → EH 23:29 → 3S 06-05 10:57 → UNDOADMIN 06-05 14:04
PROVIDERS: ADMIT Internal Medicine; ATTEND Internal Medicine
DX: I63.411 Cerebral infarction due to embolism of right middle cerebral artery (principal); G81.04 Flaccid hemiplegia affecting left nondominant side; N17.9 Acute kidney failure, unspecified; N39.0 Urinary tract infection, site not specified; Z66 Do not resuscitate; E11.22 Type 2 diabetes mellitus with diabetic chronic kidney disease; I12.9 Hypertensive chronic kidney disease with stage 1 through stage 4 chronic kidney disease, or unspecified chronic kidney disease; N18.3 Chronic kidney disease, stage 3 (moderate); E78.5 Hyperlipidemia, unspecified; I73.9 Peripheral vascular disease, unspecified; G40.909 Epilepsy, unspecified, not intractable, without status epilepticus; M16.0 Bilateral primary osteoarthritis of hip; M17.0 Bilateral primary osteoarthritis of knee; D72.823 Leukemoid reaction; Z88.0 Allergy status to penicillin; T79.6XXD Traumatic ischemia of muscle, subsequent encounter; X58.XXXD Exposure to other specified factors, subsequent encounter; Z60.2 Problems related to living alone
CPT/HCPCS: 36415; 36600; 51702; 70450; 70544; 70551; 71010; 76770; 80053; 81001; 82043; 82550; 82553; 82565; 82570; 82803; 82962; 83605; 84484; 85025; 85027; 85610; 85730; 87040; 87086; 93005; 93010; 93306; 93880; 96361; 96365; 99291; G8978-GP; G8979-GP; G8987-GO; G8988-GO; G8996-GN; G8997-GN; G8998-GN; J0692; J1650; J1815; J1956; J2270; J2405; J3490; J7030